=== PATIENT | male | born 1965 | race Caucasian/White ===

== ENCOUNTER 2018-10-07 21:39 | Inpatient (IN) | payer OTHER ==
[~2018-10-07] VITALS: Ht 180.3 cm; Wt 79.5 kg
[2018-10-07] MEDS ORDERED: LEVOTHYROXINE75 MCG ORAL (21:43)
[2018-10-07] MEDS ORDERED: LEXAPRO10 MG ORAL (21:43)
--- NOTE | 2018-10-07 21:44 | NUR ---
ED Nurse Note: RUBEN SMITH RA 27 FROM HOME C/O NAUSEA VOMITTING AND DIZZINESS SINCE 2099. Pt is AO x 4times, VSS, on room air no distress. BILL seen Pt at bedside.
--- NOTE | 2018-10-07 21:46 | Emergency Room Report ---
History of Present Illness General Chief Complaint: Dizziness Source: Patient Present Illness HPI This is a 53-year-old male with a history of [place] disease. He presents with chief complaint of weakness with nausea and vomiting and syncope. He's been sick for the last 2 weeks. He has intermittent vomiting. Unable to keep anything down. No diarrhea. He stood up today and had a syncopal episode. Call 911. No other injury. No chest pain. No abdominal pain. No cough or congestion. EMS gave him Zofran and he felt better. Was not hypotensive. Has been compliant with his hydrocortisone. Allergies: Coded Allergies: CYCLOBENZAPRINE (Verified Allergy, Unknown, 10/07/18) FEXOFENADINE (Verified Allergy, Unknown, 10/07/18) Patient History Past Medical History: see triage record, old chart reviewed Past Surgical History: other Pertinent Family History: none Social History: Denies: smoking Immunizations: other Reviewed Nursing Documentation: PMH: Agreed; PSxH: Agreed Nursing Documentation-PMH Past Medical History Deferred: Patient Unconscious Past Medical History: No History, Except For Review of Systems Eye: Denies: eye pain, blurred vision ENT: Denies: ear pain, nose congestion, throat swelling Respiratory: Denies: cough, shortness of breath Cardiovascular: Reports: syncope; Denies: chest pain, palpitations Gastrointestinal: Reports: nausea, vomiting; Denies: abdominal pain, diarrhea Musculoskeletal: Denies: back pain, joint pain Skin: Denies: rash Neurological: Denies: headache, numbness Endocrine: Denies: increased thirst, increased urine Hematologic/Lymphatic: Denies: easy bruising All Other Systems: negative except mentioned in HPI Physical Exam Vital Signs Date Time Temp Pulse Resp B/P (MAP) Pulse Ox O2 Delivery O2 Flow Rate FiO2 10/07/18 21:36 98.2 102 18 109/84 100 Room Air vitals normal Sp02 EP Interpretation: reviewed, normal General Appearance: no apparent distress, alert, thin, Chronically Ill Head: normocephalic, atraumatic Eyes: bilateral eye PERRL, bilateral eye EOMI ENT: hearing grossly normal, normal pharynx Neck: full range of motion, supple, no meningismus Respiratory: chest non-tender, lungs clear, normal breath sounds Cardiovascular #1: regular rate, rhythm, no murmur Gastrointestinal: normal bowel sounds, non tender, no mass, no organomegaly, no bruit, non-distended Musculoskeletal: back normal, gait/station normal, normal range of motion Neurologic: alert, oriented x3 Psychiatric: mood/affect normal Skin: warm/dry, pallor Medical Decision Making Diagnostic Impression: Primary Impression: Syncope Qualified Codes: R55 - Syncope and collapse Additional Impressions: Dehydration JAISON (acute kidney injury) Hyponatremia Lactic acidosis ER Course Patient presents with a GI secondary to dehydration. Discussing his syncope. Troponin negative. No source of infection. Patient just now urinated. UA pending. No evidence of ACS, PE, dissection or pneumonia to name a few. Initially, he was hypotensive but blood pressure normalized after IV fluid. Lactic acid still elevated blood coming down. Patient will be admitted for further workup. I gave him a dose of Decadron because of his [place] disease. I contacted Dr. Richardson for admission. Lab Results Impression labs with hyponatremia EKG Diagnostic Results Rate: normal Rhythm: NSR ST Segments: no acute changes Rhythm Strip Diag. Results EP Interpretation: yes Rate: 94 Rhythm: NSR, no PVC's, no ectopy Chest X-Ray Diagnostic Results Chest X-Ray Diagnostic Results : Chest X-Ray Ordered: Yes # of Views/Limited/Complete: 1 View Indication: Chest Pain EP Interpretation: Yes Interpretation: no consolidation, no effusion, no pneumothorax, no acute cardiopulmonary disease Impression: No acute disease Electronically Signed by: Satya Thakkar MD Last Vital Signs Date Time Temp Pulse Resp B/P (MAP) Pulse Ox O2 Delivery O2 Flow Rate FiO2 10/07/18 21:36 98.2 102 18 109/84 100 Room Air Status: improved Disposition: ADMITTED INPATIENT Condition: Serious Satya Thakkar MD Oct 07, 2018 21:46
[2018-10-07 21:53] VITALS: BP 89/77
--- NOTE | 2018-10-07 22:00 | NUR ---
ED Nurse Note: Blood sample sent to lab.
[2018-10-07 22:04] LABS: ANION GAP 12 mmol/L (5-15); BLOOD UREA NITROGEN 17 mg/dL (7-18); CALCIUM 9.9 MG/DL (8.5-10.1); CARBON DIOXIDE 25 MMOL/L (21-32); CHLORIDE 85 MMOL/L (98-107); CREATININE 1.7 MG/DL (0.55-1.30); POTASSIUM 3.8 MMOL/L (3.5-5.1); SODIUM 122 MMOL/L (136-145)
[2018-10-07 22:07] LABS: HEMOGLOBIN 15.3 G/DL (14.2-18.0); MEAN CORPUSCULAR VOLUME 79 FL (80-99); PLATELET COUNT 399 K/UL (150-450); RED BLOOD COUNT 5.32 M/UL (4.70-6.10); RED CELL DISTRIBUTION WIDTH 11.4 % (11.6-14.8)
[2018-10-07 22:17] LABS: ALANINE AMINOTRANSFERASE 36 U/L (12-78); ALBUMIN 3.5 G/DL (3.4-5.0); ALBUMIN/GLOBULIN RATIO 0.8 (1.0-2.7); ALKALINE PHOSPHATASE 224 U/L (46-116); ASPARTATE AMINO TRANSFERASE 18 U/L (15-37); BILIRUBIN,TOTAL 0.7 MG/DL (0.2-1.0); CKMB < 0.5 NG/ML (0.0-3.6); CREATINE KINASE 16 U/L (26-308)
[2018-10-07 22:54] VITALS: BP 107/76
--- NOTE | 2018-10-07 23:07 | NUR ---
ED Nurse Note: Repect lactic acid sent to lab.
[2018-10-07] MEDS ORDERED: Dexamethasone 4mg/ml vial IVP ONE (23:45)
[2018-10-07] MEDS ORDERED: Dexamethasone 4mg/ml vial ONE (23:45)
[2018-10-08 00:38] VITALS: BP 117/63
--- NOTE | 2018-10-08 00:46 | NUR ---
ED Nurse Note: Pt admit to Tele Room 221-2. Report and belongings given to KATELYN Taylor. Pt is AO x 4times, VSS, on romm air no distress.
[2018-10-08 00:51] LABS: APPEARANCE,URINE CLEAR; BILIRUBIN, URINE NEGATIVE (NEGATIVE); COLOR,URINE PALE YELLOW; GLUCOSE, URINE (UA) NEGATIVE (NEGATIVE); KETONES,URINE 1+ (NEGATIVE); LEUKOCYTE ESTERASE ,URINE NEGATIVE (NEGATIVE); NITRITE,URINE NEGATIVE (NEGATIVE); PH,URINE 5 (4.5-8.0); PROTEIN,URINE NEGATIVE (NEGATIVE); UROBILINOGEN,URINE NORMAL MG/DL (0.0-1.0)
--- NOTE | 2018-10-08 01:30 | NUR ---
NEW ADMISSION. Pt arrived via hospital bed at 0100. Admitting Dx: dehydration and acute kidney injury. Admitting Dr: Dr. Ramirez. Pt is on room air with no sob or resp distress. Pt was immediately placed in a gown and personnel monitor was attached. Pt denies any nausea/ vomiting or pain. Physical assessment was completed, skin is intact, no areas of concern. Pt does ambulate with slight unsteadiness, he normally uses a cane at home. Belongings were reviewed. Pt was oriented to room. Pt has right AC 20g c/d/i and locked. Med Recon was unable to be completed, pt does not recall home medications. Bed in lowest position, call light within reach. No admitting orders have been entered. Called Dr Ramirez at 0130, pending call back. Will continue to monitor
--- NOTE | 2018-10-08 03:34 | NUR ---
NURSE NOTES: RECVD call from Dr Ramirez with admitting orders. D/C home meds and contact Dr Koehler for IVF
[2018-10-08 04:00] VITALS: BP 124/82
--- NOTE | 2018-10-08 07:25 | NUR ---
NURSE NOTES: Left message for Dr Koehler regarding IVF and diet for new admission, per Dr loyd
--- NOTE | 2018-10-08 07:26 | NUR ---
HAND-OFF: Report given to Abbey ZEPEDA.
--- NOTE | 2018-10-08 07:28 | NUR ---
NURSE NOTES: Received patient from Claudia ZEPEDA in bed sleeping. No s/s of acute distress noted. Bed is in lowest position, brakes engaged for safety, call light is within reach. IV is intact and patent. Will continue with the plan of care.
[2018-10-08 08:00] VITALS: BP 102/52
[2018-10-08 12:00] VITALS: BP 101/60
[2018-10-08] MEDS: Hydrocortisone 100mg Inj IV SCH ×2 (13:21→21:30)
--- NOTE | 2018-10-08 14:37 | NUR ---
CASE MANAGEMENT:INITIAL REVIEW 53 YO M RUBEN FROM HOME CC: DIZZINESS PMHx: UNABLE TO STATE SI:DEHYDRATION. ACUTE KIDNEY INJURY. T 98.2 HR 102 RR 18 B/P 109/84 SATS 100% ON RA NA 122 CL 85 CR 1.7 GLU 240 LACTIC ACID 3.3 ALP 224 IS: NS BOLUS X2 PATIENT ADMITTED TO [facility] 10/07/2018 @ 7989 DCP: PATIENT TO BE DISCHARGED TO HOME ONCE MEDICALLY CLEARED. PLAN OF CARE: NEPHRO CONSULT Addendum: 10/08/18 at 1728 by Delores Colin CM INTERQUAL MET
--- NOTE | 2018-10-08 15:12 | Diagnostic Imaging Report ---
Indication: Chest pain Technique: One view of the chest Comparison: none Findings: Lungs and pleural spaces are clear. Heart size is normal Impression: No acute process
--- NOTE | 2018-10-08 15:16 | Cardiology Report ---
APPROVED REPORT EKG Measurement Heart [id number] Sinus tachycardia Prolonged QT Abnormal ECG
[2018-10-08 16:00] VITALS: BP 107/63
--- NOTE | 2018-10-08 17:45 | Consultation ---
Consult Note Consult Note asked to eval for low Na This is a 53-year-old male with a history of [place] disease. He presents with chief complaint of weakness with nausea and vomiting and syncope. He's been sick for the last 2 weeks. He has intermittent vomiting. Unable to keep anything down. No diarrhea. He stood up today and had a syncopal episode. Call 911. No other injury. No chest pain. No abdominal pain. No cough or congestion. EMS gave him Zofran and he felt better. Was not hypotensive. Has been compliant with his hydrocortisone. Allergies: CYCLOBENZAPRINE (Verified Allergy, Unknown, 10/07/18) FEXOFENADINE (Verified Allergy, Unknown, 10/07/18) patient examined data reviewed Low bp Lethargic Assessment/Plan Renal failure , Cr 1.7 (Acute vs Chronic) Syncope Dehydration Hyponatremia, partly dave's , partly dehydration Lactic acidosis HypoTension Urine + for amphetamines and MJ Plan: Saline Hydrocortison Monitor renal parameters and lytes per orders Jeferson Koehler MD Oct 08, 2018 17:45
--- NOTE | 2018-10-08 17:59 | Cardiac Electrophysiology PN ---
Subjective Subjective [id number] Objective Last 24 Hour Vital Signs Date Time Temp Pulse Resp B/P (MAP) Pulse Ox O2 Delivery O2 Flow Rate FiO2 10/08/18 16:00 93 10/08/18 16:00 97.2 88 20 107/63 (78) 98 10/08/18 12:00 100 10/08/18 12:00 98.1 87 20 101/60 (74) 97 10/08/18 09:00 Room Air 10/08/18 08:00 97.6 88 20 102/52 (69) 98 10/08/18 08:00 85 10/08/18 04:00 98.5 87 20 124/82 (96) 98 10/08/18 04:00 85 10/08/18 01:11 Room Air 10/08/18 00:38 98.1 98 18 117/63 100 Room Air 10/08/18 00:30 97.9 93 18 107/76 100 Room Air 10/07/18 22:54 97.9 93 18 107/76 100 Room Air 10/07/18 21:53 97.7 94 18 89/77 98 Room Air 10/07/18 21:53 94 18 Room Air 10/07/18 21:36 98.2 102 18 109/84 100 Room Air Intake and Output 10/07/18 10/08/18 18:59 06:59 Intake Total 0 ml Balance 0 ml Intake Oral 0 ml # Voids 1 Laboratory Tests Test 10/07/18 21:45 10/07/18 22:22 10/07/18 23:00 10/08/18 00:35 White Blood Count 8.0 K/UL (4.8-10.8) Red Blood Count 5.32 M/UL (4.70-6.10) Hemoglobin 15.3 G/DL (14.2-18.0) Hematocrit 42.0 % (42.0-52.0) Mean Corpuscular Volume 79 FL (80-99) L Mean Corpuscular Hemoglobin 28.7 PG (27.0-31.0) Mean Corpuscular Hemoglobin Concent 36.4 G/DL (32.0-36.0) H Red Cell Distribution Width 11.4 % (11.6-14.8) L Platelet Count 399 K/UL (150-450) Mean Platelet Volume 7.1 FL (6.5-10.1) Neutrophils (%) (Auto) % (45.0-75.0) Lymphocytes (%) (Auto) % (20.0-45.0) Monocytes (%) (Auto) % (1.0-10.0) Eosinophils (%) (Auto) % (0.0-3.0) Basophils (%) (Auto) % (0.0-2.0) Differential Total Cells Counted 100 Neutrophils % (Manual) 83 % (45-75) H Lymphocytes % (Manual) 10 % (20-45) L Monocytes % (Manual) 5 % (1-10) Eosinophils % (Manual) 0 % (0-3) Basophils % (Manual) 1 % (0-2) Band Neutrophils 1 % (0-8) Platelet Estimate Adequate Platelet Morphology Normal Red Blood Cell Morphology Normal Sodium Level 122 MMOL/L (136-145) L Potassium Level 3.8 MMOL/L (3.5-5.1) Chloride Level 85 MMOL/L (98-107) L Carbon Dioxide Level 25 MMOL/L (21-32) Anion Gap 12 mmol/L (5-15) Blood Urea Nitrogen 17 mg/dL (7-18) Creatinine 1.7 MG/DL (0.55-1.30) H Estimat Glomerular Filtration Rate 42.5 mL/min (>60) Glucose Level 240 MG/DL (74-106) H Calcium Level 9.9 MG/DL (8.5-10.1) Total Bilirubin 0.7 MG/DL (0.2-1.0) Aspartate Amino Transf (AST/SGOT) 18 U/L (15-37) Alanine Aminotransferase (ALT/SGPT) 36 U/L (12-78) Alkaline Phosphatase 224 U/L (46-116) H Total Creatine Kinase 16 U/L (26-308) L Creatine Kinase MB < 0.5 NG/ML (0.0-3.6) Creatine Kinase MB Relative Index 3.1 Troponin I 0.000 ng/mL (0.000-0.056) Total Protein 7.7 G/DL (6.4-8.2) Albumin 3.5 G/DL (3.4-5.0) Globulin 4.2 g/dL Albumin/Globulin Ratio 0.8 (1.0-2.7) L Lactic Acid Level 3.30 mmol/L (0.4-2.0) H 3.10 mmol/L (0.4-2.0) H Urine Color Pale yellow Urine Appearance Clear Urine pH 5 (4.5-8.0) Urine Specific [place] 1.010 (1.005-1.035) Urine Protein Negative (NEGATIVE) Urine Glucose (UA) Negative (NEGATIVE) Urine Ketones 1+ (NEGATIVE) H Urine Blood Negative (NEGATIVE) Urine Nitrite Negative (NEGATIVE) Urine Bilirubin Negative (NEGATIVE) Urine Urobilinogen Normal MG/DL (0.0-1.0) Urine Leukocyte Esterase Negative (NEGATIVE) Urine Opiates Screen Negative (NEGATIVE) Urine Barbiturates Screen Negative (NEGATIVE) Phencyclidine (PCP) Screen Negative (NEGATIVE) Urine Amphetamines Screen Positive (NEGATIVE) H Urine Benzodiazepines Screen Negative (NEGATIVE) Urine Cocaine Screen Negative (NEGATIVE) Urine Marijuana (THC) Screen Positive (NEGATIVE) H Jerel Palmer MD Oct 08, 2018 17:59
--- NOTE | 2018-10-08 19:21 | NUR ---
HAND-OFF: Report given to KATELYN Huber . Endorsed plan of care.
--- NOTE | 2018-10-08 19:23 | NUR ---
NURSE NOTES: Received report from Alfred Mata RN. Patient in bed AAO X4 with HOB elevated at semi fowlers. Kept clean, dry, and comfortable in bed with no complaints of acute pain at this time. IV line intact and patent and receiving fluids for suspected dehydration. Continent and is able to use urinal. Placed on continuos cardiac monitoring per protocol. Safety precaution in place; siderails x3 up, call light within reach, bed in lowest position, breaks and alarm on at all times. 02 sat at 96-97% on RA with no S/S of respiratory distress. Will continue plan of care and monitor for any changes noted.
[2018-10-08 20:00] VITALS: BP 97/59
--- NOTE | 2018-10-08 20:01 | Consultation ---
DATE OF CONSULTATION: 10/08/2018 INFECTIOUS DISEASE CONSULTATION CONSULTING PHYSICIAN: Sal Wisdom M.D. PRIMARY ATTENDING PHYSICIAN: Yashira Ramirez M.D. REASON FOR CONSULTATION: Lactic acidosis and syncope. HISTORY OF PRESENT ILLNESS: This is a 53-year-old male admitted last night complaining of weakness, nausea, vomiting, and had a syncopal episode. He lost consciousness for a short period, fell down on his hip. PAST MEDICAL HISTORY: Significant for [place] disease. The patient took 30 mg of hydrocortisone daily. ALLERGIES: To cyclobenzaprine and fexofenadine. MEDICATIONS: Getting hydrocortisone, sodium chloride, Zofran, Tylenol. Got a dose of dexamethasone in the ER. SOCIAL HISTORY: Single. Smoker. Used marijuana. Denies alcohol or drug abuse. REVIEW OF SYSTEMS: Some runny nose. No nausea and no vomiting today. No chest pain. No coughing. No problem passing urine. PHYSICAL EXAMINATION: VITAL SIGNS: Temperature 98.1, pulse 87, blood pressure 101/60. GENERAL APPEARANCE: No acute distress. He has normal weight. HEAD AND NECK: No oral lesion. The patient has no teeth or denture. HEART: Normal rate. LUNGS: Clear. ABDOMEN: Soft, nontender. EXTREMITIES: He has no edema. NEUROLOGIC: He is awake, alert, oriented. LABORATORY AND DIAGNOSTIC DATA: WBC 8, hemoglobin 15.3, hematocrit 42, platelet is 399,000. Sodium 122, potassium 3.8, chloride 85, bicarbonate 25, BUN 17, creatinine 1.7, glucose 214. Lactic acid 3.1. UA was negative for wbc, nitrite, and leukocyte esterase. Troponin was zero. Chest x-ray report is pending. Venous duplex of lower extremity showed no thrombosis bilaterally. IMPRESSION: Lactic acidosis, syncope episode, acute kidney injury, severe hyponatremia, amphetamine abuse, nicotine dependence. RECOMMENDATION: We will follow up chest x-ray because the patient has no fever and leukocytosis. We will observe off antibiotic. At the end of my exam, I thank Dr. Ramirez for involving me in the care of this patient. Sal Wisdom M.D. DR: Estrella JOB#: [id number] CC: GERARDO
--- NOTE | 2018-10-08 22:02 | Consultation ---
DATE OF CONSULTATION: 10/08/2018 CARDIOLOGY CONSULTATION CONSULTING PHYSICIAN: Jerel Palmer M.D. REFERRING PHYSICIAN: Yashira Ramirez M.D. REASON FOR CONSULTATION: Syncope. HISTORY OF PRESENT ILLNESS: The patient is a 53-year-old gentleman with history of [place]'s disease, who presents with weakness, nausea, vomiting, and episode of syncope. The patient said he has been sick for two weeks, but he has had episode of syncope in the past. The patient was unable to keep anything down. He did not have diarrhea. He stood up and had a syncopal episode. He called 911. The paramedics came, they gave him Zofran and felt better as he was still nauseous. The patient was noted to have a creatinine of 1.7, was admitted for hyponatremia. His urine toxicology screen was also positive for amphetamine and marijuana. REVIEW OF SYSTEMS: Negative other than what was mentioned in the history of present illness. PAST MEDICAL HISTORY: As mentioned above. FAMILY HISTORY: Noncontributory. SOCIAL HISTORY: He lives at home. He uses marijuana and amphetamine. PHYSICAL EXAMINATION: VITAL SIGNS: Blood pressure is 107/63, pulse 88, respirations 18, and he is afebrile. HEAD AND NECK: Showed no JVD or carotid bruit. LUNGS: Clear. CARDIOVASCULAR: Shows regular S1 and S2 with no gallop or murmur. ABDOMEN: Soft and nontender. EXTREMITIES: No pitting edema. LABORATORY AND DIAGNOSTIC DATA: His labs show white count 8, hemoglobin 15, hematocrit 42, and platelet count 399. Sodium 122, potassium 3.8, BUN 17, and creatinine 1.8. Lactic acid 3.3 and 3.1. Troponin is negative. ASSESSMENT AND PLAN: 1. Syncopal episodes. This could be due to sepsis, severe hyponatremia, and dehydration. Lactic acid was 3.3, creatinine 1.7, sodium 122. His first troponin is negative. We will repeat cardiac enzymes and get an echocardiogram for further evaluation. 2. Severe hyponatremia, as the patient has history of [place]'s disease. 3. Polysubstance abuse with amphetamine and marijuana. 4. [place] disease. The patient is on Solu-Cortef 50 mg IV every 8 hours. Thank you very much, Dr. Ramirez, for allowing me to participate in the care of this patient. Please do not hesitate to contact me for any questions regarding my evaluation. Jerel Palmer M.D. DR: POOJA JOB#: [id number] CC:
--- NOTE | 2018-10-08 22:46 | Consultation ---
DATE OF CONSULTATION: 10/08/2018 ENDOCRINOLOGY CONSULTATION CONSULTING PHYSICIAN: Yong Montoya M.D. REFERRING PHYSICIAN: Yashira Ramirez M.D. REASON FOR CONSULTATION: Leon's . HISTORY OF PRESENT ILLNESS: The patient is a 53-year-old male with history of [place] disease, presenting with weakness, nausea, vomiting, and syncope. He was sick for the past 2 weeks. He has been intermittently vomiting, unable to keep anything down. No diarrhea and he had a syncopal episode the day of admission, called 911. He has been compliant with the trial of cortisol. PAST MEDICAL HISTORY: [place]. PAST SURGICAL HISTORY: None. ALLERGIES: To Flexeril and fexofenadine. FAMILY HISTORY: Noncontributory. SOCIAL HISTORY: No smoking, alcohol, or drug use. REVIEW OF SYSTEMS: As per HPI. LABORATORY DATA: WBC 8, hemoglobin 15, hematocrit 42, and platelets 399. Sodium 122, potassium 3.6, chloride 85, bicarb 25, BUN 17, and creatinine 1.7. Lactic acid of 3.3. PHYSICAL EXAMINATION: VITAL SIGNS: Blood pressure 117/63, pulse 98, respiratory rate 18, and temperature 98. HEENT: Pupils are equal and reactive to light. Sclerae are anicteric. NECK: No JVD. HEART: Regular. LUNGS: Clear. ABDOMEN: Positive bowel sounds. EXTREMITIES: No clubbing, cyanosis, or edema. DIAGNOSES: 1. Nausea and vomiting. 2. Syncope. 3. [place] crisis. PLAN: The patient was given a dose of Decadron in the emergency room. We will continue with stress dose of Solu-Cortef 50 mg IV q.8 h. for now followed by taper. I will follow the patient during his stay. Thank you, Dr. Ramirez, for the courtesy of this consultation. Yong Montoya M.D. DR: PHILOMENA JOB#: [id number] CC: GERARDO
[2018-10-09] VITALS: BP 108/67
--- NOTE | 2018-10-09 02:40 | NUR ---
NURSE NOTES: Patient in bed asleep with no S/S of acute pain or discomfort at this time. Will continue to monitor
--- NOTE | 2018-10-09 03:16 | History and Physical Report ---
DATE OF ADMISSION: 10/07/2018 HISTORY OF PRESENT ILLNESS: The patient is admitted for dehydration, acute kidney injury. The patient has been complaining of history of syncopal episodes, dizziness, as well as vomiting. It happened a day before admission. All of this could be mostly due to dehydration. Denies shortness of breath. Denies nausea or vomiting. Denies any abdominal pain. Denies orthopnea. Denies headache. PAST MEDICAL HISTORY: Depression, hypothyroidism. PAST SURGICAL HISTORY: None. SOCIAL HISTORY: History of smoking. History of drug abuse. No history of alcohol abuse. ALLERGIES: Cyclobenzaprine, fexofenadine, and Flomax. MEDICATIONS: Levoxyl and Lexapro. FAMILY HISTORY: Noncontributory. REVIEW OF SYSTEMS: HEENT: Denies headaches. PULMONARY: Denies shortness of breath. Denies cough. CARDIOVASCULAR: Denies chest pain or orthopnea. GASTROINTESTINAL: Reported vomiting. Denies constipation. Denies abdominal pain. EXTREMITIES: Denies pain in the lower extremities. CENTRAL NERVOUS SYSTEM: No change in vision or speech pattern. Did have syncopal episode the night before admission, but it lasted very few seconds to a minute. No headache. No change in vision or speech. PHYSICAL EXAMINATION: VITAL SIGNS: Temperature 98.5, pulse is 85, blood pressure 124/82. CHEST: Clear to auscultation. CARDIOVASCULAR: Regular rate and rhythm. CHEST: Clear to auscultation. GASTROINTESTINAL: Soft, nontender, and organomegaly. EXTREMITIES: No edema. Moves all four extremities. Sensory intact to light touch. Reflexes are equal on both sides. Moves all four extremities. LABORATORY DATA: WBC of 8, hemoglobin 15.3, and platelets of 399,000. Sodium 122, potassium 3.8, BUN of 17, creatinine of 1.7, and glucose of 240. The patient's lactic acid was 2.3. ASSESSMENT AND PLAN: Severe hyponatremia, syncopal episode, dehydration, vomiting. The patient's symptoms are most likely due to hyponatremia. I have asked Dr. Koehler, Dr. Palmer, Dr. Ledesma, and Dr. Sal Wisdom and Dr. Saleem see the patient for syncopal workup as well as for treatment of hyponatremia as well as to rule out any infectious etiology, failure to the treatment of hyponatremia and the management of the diabetes. Glucose was 240. Ali Grant Ramirez DR: Job JOB#: [id number] CC:
[2018-10-09 04:00] VITALS: BP 112/71
[2018-10-09] MEDS: Hydrocortisone 100mg Inj IV SCH (06:16)
--- NOTE | 2018-10-09 06:32 | General Progress Note ---
Assessment/Plan Problem List: (1) [place] disease ICD Codes: E27.1 - Primary adrenocortical insufficiency SNOMED: 103721993 (2) Hyponatremia ICD Codes: E87.1 - Hypo-osmolality and hyponatremia SNOMED: 25464212 (3) Lactic acidosis ICD Codes: E87.2 - Acidosis SNOMED: 86689394 (4) Dehydration ICD Codes: E86.0 - Dehydration SNOMED: 22187493 (5) Syncope ICD Codes: R55 - Syncope and collapse SNOMED: 471543082 Qualifiers: Qualified Codes: R55 - Syncope and collapse (6) JAISON (acute kidney injury) ICD Codes: N17.9 - Acute kidney failure, unspecified SNOMED: 92281887 Assessment/Plan reduce SoluCortef to 25 mg IV every 8 hours Subjective Allergies: Coded Allergies: CYCLOBENZAPRINE (Verified Allergy, Unknown, 10/07/18) FEXOFENADINE (Verified Allergy, Unknown, 10/07/18) All Systems: reviewed and negative except above Subjective events noted Objective Last 24 Hour Vital Signs Date Time Temp Pulse Resp B/P (MAP) Pulse Ox O2 Delivery O2 Flow Rate FiO2 10/09/18 00:00 79 10/09/18 00:00 98.1 80 20 108/67 (81) 97 10/08/18 21:00 Room Air 10/08/18 20:00 93 10/08/18 20:00 97.2 89 20 97/59 (72) 96 10/08/18 16:00 93 10/08/18 16:00 97.2 88 20 107/63 (78) 98 10/08/18 12:00 100 10/08/18 12:00 98.1 87 20 101/60 (74) 97 10/08/18 09:00 Room Air 10/08/18 08:00 97.6 88 20 102/52 (69) 98 10/08/18 08:00 85 Intake and Output 10/08/18 10/09/18 19:00 07:00 Intake Total 720 ml Output Total 900 ml 1000 ml Balance -180 ml -1000 ml Intake Oral 720 ml Output Urine Total 900 ml 1000 ml # Voids 1 2 Laboratory Tests 10/08/18 21:10: C-Reactive Protein, Quantitative 1.6H Height (Feet): 5 Height (Inches): 11.00 Weight (Pounds): 175 General Appearance: no apparent distress Neck: normal alignment Cardiovascular: normal rate Respiratory/Chest: normal breath sounds Abdomen: normal bowel sounds Objective Current Medications Medications (Trade) Dose Ordered Sig/Sajan Route PRN Reason Start Time Stop Time Status Last Admin Dose Admin Acetaminophen (Tylenol) 650 mg Q6H PRN ORAL Mild Pain/Temp > 100.5 10/08/18 03:30 11/07/18 03:29 Hydrocortisone (Solu-CORTEF) 50 mg EVERY 8 HOURS IV 10/08/18 14:00 11/07/18 13:59 10/09/18 06:16 Ondansetron HCl (Zofran) 4 mg Q6H PRN IVP Nausea & Vomiting 10/08/18 03:30 11/07/18 03:29 Sodium Chloride 1,000 ml @ 100 mls/hr Q10H IV 10/08/18 11:30 11/07/18 11:29 10/09/18 06:16 Yong Montoya MD Oct 09, 2018 06:31
--- NOTE | 2018-10-09 07:41 | NUR ---
HAND-OFF: Report given to Chandrakant Churchill RN. Patient in bed asleep in stable condition, endorsed plan of care.
[2018-10-09 08:00] VITALS: BP 106/70
--- NOTE | 2018-10-09 08:04 | NUR ---
Receiving note: Patient resting in bed, breathing even and unlabored on room air. A+Ox4. Tele reading SR. denies pain. eating breakfast. reviewed plan of care. Call light in reach.
[2018-10-09 08:16] LABS: BASOPHILS % (AUTO) 0.3 % (0.0-2.0); HEMATOCRIT 34.4 % (42.0-52.0); HEMOGLOBIN 12.2 G/DL (14.2-18.0); LYMPHOCYTES % (AUTO) 17.7 % (20.0-45.0); MEAN CORPUSCULAR VOLUME 81 FL (80-99); MONOCYTES % (AUTO) 7.6 % (1.0-10.0); NEUTROPHILS % (AUTO) 74.3 % (45.0-75.0); PLATELET COUNT 258 K/UL (150-450); RED BLOOD COUNT 4.23 M/UL (4.70-6.10); RED CELL DISTRIBUTION WIDTH 12.7 % (11.6-14.8); WHITE BLOOD COUNT 5.4 K/UL (4.8-10.8)
[2018-10-09 08:54] LABS: ALANINE AMINOTRANSFERASE 34 U/L (12-78); ALBUMIN 2.8 G/DL (3.4-5.0); ALBUMIN/GLOBULIN RATIO 0.8 (1.0-2.7); ALKALINE PHOSPHATASE 164 U/L (46-116); ANION GAP 7 mmol/L (5-15); ASPARTATE AMINO TRANSFERASE 26 U/L (15-37); BILIRUBIN,TOTAL 0.3 MG/DL (0.2-1.0); BLOOD UREA NITROGEN 14 mg/dL (7-18); CALCIUM 8.3 MG/DL (8.5-10.1); CARBON DIOXIDE 27 MMOL/L (21-32); CHLORIDE 99 MMOL/L (98-107); CHOLESTEROL 151 MG/DL (< 200); CREATININE 0.9 MG/DL (0.55-1.30); FERRITIN 251 NG/ML (8-388); GAMMA GLUTAMYL TRANSPEPTIDASE 86 U/L (5-85); HDL CHOLESTEROL 44 MG/DL (40-60); PHOSPHORUS 3.2 MG/DL (2.5-4.9); POTASSIUM 3.5 MMOL/L (3.5-5.1); SODIUM 133 MMOL/L (136-145); TRIGLYCERIDES 72 MG/DL (30-150)
[2018-10-09 09:17] LABS: % IRON SATURATION 64 % (15-50); IRON 133 ug/dL (50-175); TOTAL IRON BINDING CAPACITY 208 ug/dL (250-450)
--- NOTE | 2018-10-09 11:10 | Infectious Diseases Prog Note ---
Assessment/Plan Assessment/Plan IMPRESSION: Lactic acidosis, syncope episode, acute kidney injury, severe hyponatremia improving, amphetamine abuse, nicotine dependence. RECOMMENDATION: We will observe off antibiotic. Subjective ROS Limited/Unobtainable: No Constitutional: Reports: no symptoms Respiratory: Reports: no symptoms Cardiovascular: Reports: no symptoms Gastrointestinal/Abdominal: Reports: no symptoms Genitourinary: Reports: no symptoms Allergies: Coded Allergies: CYCLOBENZAPRINE (Verified Allergy, Unknown, 10/07/18) FEXOFENADINE (Verified Allergy, Unknown, 10/07/18) Objective Vital Signs Last 24 Hour Vital Signs Date Time Temp Pulse Resp B/P (MAP) Pulse Ox O2 Delivery O2 Flow Rate FiO2 10/09/18 09:00 Room Air 10/09/18 08:00 97.2 80 18 106/70 (82) 96 10/09/18 04:00 95 10/09/18 04:00 97.0 83 20 112/71 (85) 97 10/09/18 00:00 79 10/09/18 00:00 98.1 80 20 108/67 (81) 97 10/08/18 21:00 Room Air 10/08/18 20:00 93 10/08/18 20:00 97.2 89 20 97/59 (72) 96 10/08/18 16:00 93 10/08/18 16:00 97.2 88 20 107/63 (78) 98 10/08/18 12:00 100 10/08/18 12:00 98.1 87 20 101/60 (74) 97 Height (Feet): 5 Height (Inches): 11.00 Weight (Pounds): 175 General Appearance: no acute distress HEENT: mucous membranes moist Respiratory/Chest: lungs clear Cardiovascular: normal rate Abdomen: soft, non tender Extremities: no edema Neurologic/Psychiatric: alert, responsive Laboratory Tests Test 10/08/18 21:10 10/09/18 07:45 C-Reactive Protein, Quantitative 1.6 mg/dL (0.00-0.90) H White Blood Count 5.4 K/UL (4.8-10.8) Red Blood Count 4.23 M/UL (4.70-6.10) L Hemoglobin 12.2 G/DL (14.2-18.0) L Hematocrit 34.4 % (42.0-52.0) L Mean Corpuscular Volume 81 FL (80-99) Mean Corpuscular Hemoglobin 28.8 PG (27.0-31.0) Mean Corpuscular Hemoglobin Concent 35.5 G/DL (32.0-36.0) Red Cell Distribution Width 12.7 % (11.6-14.8) Platelet Count 258 K/UL (150-450) Mean Platelet Volume 7.5 FL (6.5-10.1) Neutrophils (%) (Auto) 74.3 % (45.0-75.0) Lymphocytes (%) (Auto) 17.7 % (20.0-45.0) L Monocytes (%) (Auto) 7.6 % (1.0-10.0) Eosinophils (%) (Auto) 0.0 % (0.0-3.0) Basophils (%) (Auto) 0.3 % (0.0-2.0) Sodium Level 133 MMOL/L (136-145) L Potassium Level 3.5 MMOL/L (3.5-5.1) Chloride Level 99 MMOL/L (98-107) Carbon Dioxide Level 27 MMOL/L (21-32) Anion Gap 7 mmol/L (5-15) Blood Urea Nitrogen 14 mg/dL (7-18) Creatinine 0.9 MG/DL (0.55-1.30) Estimat Glomerular Filtration Rate > 60 mL/min (>60) Glucose Level 127 MG/DL (74-106) #H Hemoglobin A1c 5.3 % (4.3-6.0) Uric Acid 2.6 MG/DL (2.6-7.2) Calcium Level 8.3 MG/DL (8.5-10.1) L Phosphorus Level 3.2 MG/DL (2.5-4.9) Magnesium Level 1.5 MG/DL (1.8-2.4) L Iron Level 133 ug/dL (50-175) Total Iron Binding Capacity 208 ug/dL (250-450) L Percent Iron Saturation 64 % (15-50) H Unsaturated Iron Binding 75 ug/dL (112-346) L Ferritin 251 NG/ML (8-388) Total Bilirubin 0.3 MG/DL (0.2-1.0) Gamma Glutamyl Transpeptidase 86 U/L (5-85) H Aspartate Amino Transf (AST/SGOT) 26 U/L (15-37) Alanine Aminotransferase (ALT/SGPT) 34 U/L (12-78) Alkaline Phosphatase 164 U/L (46-116) H Troponin I 0.000 ng/mL (0.000-0.056) Pro-B-Type Natriuretic Peptide 174 pg/mL (0-125) H Total Protein 6.1 G/DL (6.4-8.2) L Albumin 2.8 G/DL (3.4-5.0) L Globulin 3.3 g/dL Albumin/Globulin Ratio 0.8 (1.0-2.7) L Triglycerides Level 72 MG/DL (30-150) Cholesterol Level 151 MG/DL (< 200) LDL Cholesterol 93 mg/dL (<100) HDL Cholesterol 44 MG/DL (40-60) Cholesterol/HDL Ratio 3.4 (3.3-4.4) Vitamin B12 Level 952 PG/ML (193-986) Folate 16.3 NG/ML (8.6-58.9) Thyroid Stimulating Hormone (TSH) 1.515 uiU/mL (0.358-3.740) Current Medications Medications (Trade) Dose Ordered Sig/Sajan Route PRN Reason Start Time Stop Time Status Last Admin Dose Admin Acetaminophen (Tylenol) 650 mg Q6H PRN ORAL Mild Pain/Temp > 100.5 10/08/18 03:30 11/07/18 03:29 Hydrocortisone (Solu-CORTEF) 25 mg EVERY 8 HOURS IV 10/09/18 14:00 11/07/18 13:59 Ondansetron HCl (Zofran) 4 mg Q6H PRN IVP Nausea & Vomiting 10/08/18 03:30 11/07/18 03:29 Sodium Chloride 1,000 ml @ 100 mls/hr Q10H IV 10/08/18 11:30 11/07/18 11:29 10/09/18 06:16 Sal Wisdom MD Oct 09, 2018 11:10
[2018-10-09 12:00] VITALS: BP 126/83
[2018-10-09] MEDS ORDERED: Hydrocortisone 100mg Inj IV SCH (14:00)
--- NOTE | 2018-10-09 14:13 | Diagnostic Imaging Report ---
APPROVED REPORT CPT Code: 49604 Present Symptoms Comments: Swelling BILATERAL: Imaging reveals a patent deep venous system bilaterally. There is no evidence of thrombus within the common femoral, superficial femoral, popliteal or tibial segments. The greater saphenous veins are within normal limits. Doppler indicates normal spontaneous flow within these segments.
--- NOTE | 2018-10-09 14:32 | Nephrology Progress Note ---
Assessment/Plan Problem List: (1) Brooks disease (2) Dehydration (3) Hyponatremia (4) JAISON (acute kidney injury) Assessment Renal failure , Cr 1.7 (Acute vs Chronic) normalized Syncope Dehydration improved Hyponatremia, partly dave's , partly dehydration improved Lactic acidosis HypoTension Urine + for amphetamines and MJ Plan Plan: Saline Hydrocortison, lower dose Monitor renal parameters and lytes per orders Subjective ROS Limited/Unobtainable: No Objective Objective Last 24 Hour Vital Signs Date Time Temp Pulse Resp B/P (MAP) Pulse Ox O2 Delivery O2 Flow Rate FiO2 10/09/18 12:00 97.5 77 20 126/83 (97) 99 10/09/18 09:00 Room Air 10/09/18 08:00 97.2 80 18 106/70 (82) 96 10/09/18 04:00 95 10/09/18 04:00 97.0 83 20 112/71 (85) 97 10/09/18 00:00 79 10/09/18 00:00 98.1 80 20 108/67 (81) 97 10/08/18 21:00 Room Air 10/08/18 20:00 93 10/08/18 20:00 97.2 89 20 97/59 (72) 96 10/08/18 16:00 93 10/08/18 16:00 97.2 88 20 107/63 (78) 98 Intake and Output 10/08/18 10/09/18 19:00 07:00 Intake Total 720 ml 320 ml Output Total 900 ml 1800 ml Balance -180 ml -1480 ml Intake Oral 720 ml 320 ml Output Urine Total 900 ml 1800 ml # Voids 1 4 Laboratory Tests 10/08/18 21:10: C-Reactive Protein, Quantitative 1.6H 10/09/18 07:45: White Blood Count 5.4, Red Blood Count 4.23L, Hemoglobin 12.2L, Hematocrit 34.4L , Mean Corpuscular Volume 81, Mean Corpuscular Hemoglobin 28.8, Mean Corpuscular Hemoglobin Concent 35.5, Red Cell Distribution Width 12.7, Platelet Count 258, Mean Platelet Volume 7.5, Neutrophils (%) (Auto) 74.3, Lymphocytes (% ) (Auto) 17.7L, Monocytes (%) (Auto) 7.6, Eosinophils (%) (Auto) 0.0, Basophils (%) (Auto) 0.3, Sodium Level 133L, Potassium Level 3.5, Chloride Level 99, Carbon Dioxide Level 27, Anion Gap 7, Blood Urea Nitrogen 14, Creatinine 0.9, Estimat Glomerular Filtration Rate > 60, Glucose Level 127#H, Hemoglobin A1c 5.3 , Uric Acid 2.6, Calcium Level 8.3L, Phosphorus Level 3.2, Magnesium Level 1.5L , Iron Level 133, Total Iron Binding Capacity 208L, Percent Iron Saturation 64H , Unsaturated Iron Binding 75L, Ferritin 251, Total Bilirubin 0.3, Gamma Glutamyl Transpeptidase 86H, Aspartate Amino Transf (AST/SGOT) 26, Alanine Aminotransferase (ALT/SGPT) 34, Alkaline Phosphatase 164H, Troponin I 0.000, Pro -B-Type Natriuretic Peptide 174H, Total Protein 6.1L, Albumin 2.8L, Globulin 3.3 , Albumin/Globulin Ratio 0.8L, Triglycerides Level 72, Cholesterol Level 151, LDL Cholesterol 93, HDL Cholesterol 44, Cholesterol/HDL Ratio 3.4, Vitamin B12 Level 952, Folate 16.3, Thyroid Stimulating Hormone (TSH) 1.515 Height (Feet): 5 Height (Inches): 11.00 Weight (Pounds): 175 General Appearance: no apparent distress, other - more responsive Cardiovascular: normal rate Respiratory/Chest: decreased breath sounds Abdomen: soft Objective no change Jeferson Koehler MD Oct 09, 2018 14:32
[2018-10-09 16:00] VITALS: BP 131/85
--- NOTE | 2018-10-09 16:34 | Cardiac Electrophysiology PN ---
Assessment/Plan Assessment/Plan 1. Syncopal episodes. This could be due to sepsis, severe hyponatremia and dehydration. Lactic acid was 3.3, creatinine 1.7, sodium 122. Ruled out for OR. Echo pending. 2. Severe hyponatremia, as the patient has history of [place]'s disease. Na now 133 3. Polysubstance abuse with amphetamine and marijuana. 4. [place] disease. The patient is on Solu-Cortef 50 mg IV every 8 hours. SERGEI RN Subjective Subjective Remained in SR. No CP or SOB Objective Last 24 Hour Vital Signs Date Time Temp Pulse Resp B/P (MAP) Pulse Ox O2 Delivery O2 Flow Rate FiO2 10/09/18 12:00 97.5 77 20 126/83 (97) 99 10/09/18 09:00 Room Air 10/09/18 08:00 97.2 80 18 106/70 (82) 96 10/09/18 04:00 95 10/09/18 04:00 97.0 83 20 112/71 (85) 97 10/09/18 00:00 79 10/09/18 00:00 98.1 80 20 108/67 (81) 97 10/08/18 21:00 Room Air 10/08/18 20:00 93 10/08/18 20:00 97.2 89 20 97/59 (72) 96 Intake and Output 10/08/18 10/09/18 19:00 07:00 Intake Total 720 ml 320 ml Output Total 900 ml 1800 ml Balance -180 ml -1480 ml Intake Oral 720 ml 320 ml Output Urine Total 900 ml 1800 ml # Voids 1 4 Laboratory Tests Test 10/08/18 21:10 10/09/18 07:45 C-Reactive Protein, Quantitative 1.6 mg/dL (0.00-0.90) H White Blood Count 5.4 K/UL (4.8-10.8) Red Blood Count 4.23 M/UL (4.70-6.10) L Hemoglobin 12.2 G/DL (14.2-18.0) L Hematocrit 34.4 % (42.0-52.0) L Mean Corpuscular Volume 81 FL (80-99) Mean Corpuscular Hemoglobin 28.8 PG (27.0-31.0) Mean Corpuscular Hemoglobin Concent 35.5 G/DL (32.0-36.0) Red Cell Distribution Width 12.7 % (11.6-14.8) Platelet Count 258 K/UL (150-450) Mean Platelet Volume 7.5 FL (6.5-10.1) Neutrophils (%) (Auto) 74.3 % (45.0-75.0) Lymphocytes (%) (Auto) 17.7 % (20.0-45.0) L Monocytes (%) (Auto) 7.6 % (1.0-10.0) Eosinophils (%) (Auto) 0.0 % (0.0-3.0) Basophils (%) (Auto) 0.3 % (0.0-2.0) Sodium Level 133 MMOL/L (136-145) L Potassium Level 3.5 MMOL/L (3.5-5.1) Chloride Level 99 MMOL/L (98-107) Carbon Dioxide Level 27 MMOL/L (21-32) Anion Gap 7 mmol/L (5-15) Blood Urea Nitrogen 14 mg/dL (7-18) Creatinine 0.9 MG/DL (0.55-1.30) Estimat Glomerular Filtration Rate > 60 mL/min (>60) Glucose Level 127 MG/DL (74-106) #H Hemoglobin A1c 5.3 % (4.3-6.0) Uric Acid 2.6 MG/DL (2.6-7.2) Calcium Level 8.3 MG/DL (8.5-10.1) L Phosphorus Level 3.2 MG/DL (2.5-4.9) Magnesium Level 1.5 MG/DL (1.8-2.4) L Iron Level 133 ug/dL (50-175) Total Iron Binding Capacity 208 ug/dL (250-450) L Percent Iron Saturation 64 % (15-50) H Unsaturated Iron Binding 75 ug/dL (112-346) L Ferritin 251 NG/ML (8-388) Total Bilirubin 0.3 MG/DL (0.2-1.0) Gamma Glutamyl Transpeptidase 86 U/L (5-85) H Aspartate Amino Transf (AST/SGOT) 26 U/L (15-37) Alanine Aminotransferase (ALT/SGPT) 34 U/L (12-78) Alkaline Phosphatase 164 U/L (46-116) H Troponin I 0.000 ng/mL (0.000-0.056) Pro-B-Type Natriuretic Peptide 174 pg/mL (0-125) H Total Protein 6.1 G/DL (6.4-8.2) L Albumin 2.8 G/DL (3.4-5.0) L Globulin 3.3 g/dL Albumin/Globulin Ratio 0.8 (1.0-2.7) L Triglycerides Level 72 MG/DL (30-150) Cholesterol Level 151 MG/DL (< 200) LDL Cholesterol 93 mg/dL (<100) HDL Cholesterol 44 MG/DL (40-60) Cholesterol/HDL Ratio 3.4 (3.3-4.4) Vitamin B12 Level 952 PG/ML (193-986) Folate 16.3 NG/ML (8.6-58.9) Thyroid Stimulating Hormone (TSH) 1.515 uiU/mL (0.358-3.740) Objective HEAD AND NECK: Showed no JVD or carotid bruit. LUNGS: Clear. CARDIOVASCULAR: Shows regular S1 and S2 with no gallop or murmur. ABDOMEN: Soft and nontender. EXTREMITIES: No pitting edema. Jerel Palmer MD Oct 09, 2018 16:34
--- NOTE | 2018-10-09 16:53 | NUR ---
nurse note: Patient complaining of pain that he says is only relieved by Metocarbomol (Roboxin) not other medication. Informed Dr Richardson and Canelo Lea TRANSPLANT NURSE PRACTITIONER. Per TRANSPLANT NURSE PRACTITIONER will assess patient. Patient saying he wants to be discharged today, informed Dr. Alba, per not stable for D/C today.
--- NOTE | 2018-10-09 18:18 | NUR ---
AMA note: patient going increasingly irritated waiting for medication, MD visit and for having a puree diet. Informed patient that he is being cardiac monitored and pending an echocardiogram to make sure his cardiovascular system is stable. In addition he is receiving essential hydration and frequent blood tests for electrolyte monitoring. Informed patient that a pain radiator specialist will be here to see him shortly. Patient saying "i don't care i just want to get out of here" and pacing in his room. Patient saying that his girl friend is picking him up, unable to confirm. last vital signs stable, patient alert and oriented. Patient signed leaving AMA forms. Tried to give his yellow copy and he crumbled paper and threw it on the ground. Soon after patient left, VIVIAN Lea came to see patient. Informed Dr. Ramirez that patient left AMA.
--- NOTE | 2018-10-10 09:57 | Discharge Summary ---
Discharge Summary Discharge Summary _ DATE OF ADMISSION: 10/07/2018 DATE OF DISCHARGE: 10/09/2018 DISCHARGED BY: Dr. Yashira Richardson CONSULTANTS: Dr. Jerel Montoya BRIEF HOSPITAL COURSE: Patient is a 53-year-old male, with history of Israel's disease. He presented with chief complaint of weakness with associated nausea vomiting and syncope. He had been sick for the past 2 weeks. He had intermittent vomiting. He was unable to keep anything down. He denied any diarrhea. He got up earlier and had a syncopal episode. He called 911. He denied any chest pain. There was no other injury. There was no abdominal pain, no cough or congestion. He was given Zofran by EMS and he felt better. He had been compliant with his hydrocortisone. On evaluation at ED, vital signs were stable. Blood work did not show any psychosis, hemoglobin and hematocrit were stable. Sodium was 122, chloride 85. BUN was 17, creatinine 1.7. Troponin was negative. Lactic acid was elevated to 3. Urinalysis was essentially negative. Urine toxicology screen was positive for marijuana and amphetamines. EKG was in normal sinus rhythm. Chest x-ray done did not show any acute process. Blood pressure was initially low. He was given IV hydration. 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 He was admitted for evaluation of hyponatremia, syncope, dehydration, and acute kidney injury and lactic acidosis. He was given IV hydration. Check enzymes were monitored. He was given stress dose of Solu-Cortef 50 mg IV every 8 hrs. Venous duplex of lower extremity was negative for acute DVT. Full treatment was not carried out as patient left against medical advise. 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 I have been assigned to complete a discharge summary on this account, I was not involved with the patient's management. Carmella Ocampo NP Oct 10, 2018 09:57
== END 2018-10-09 17:39 | disposition left against medical advice (07) | DRG 720 ==
LOC: EDBD 21:39 → EMR 22:00 → 4E 23:05 → 2E 23:05 → UNDOADMIN 23:05 → EDBEDREQ 23:20 → 2E 10-09 15:55
DX: A41.9 Sepsis, unspecified organism (principal); N17.9 Acute kidney failure, unspecified; E27.2 Addisonian crisis; E87.1 Hypo-osmolality and hyponatremia; R55 Syncope and collapse; E86.0 Dehydration; F19.10 Other psychoactive substance abuse, uncomplicated; N18.9 Chronic kidney disease, unspecified; F17.200 Nicotine dependence, unspecified, uncomplicated; Z88.8 Allergy status to other drugs, medicaments and biological substances; E03.9 Hypothyroidism, unspecified
CPT/HCPCS: 36415; 71045; 80053; 80061; 80307; 81003; 82550; 82553; 82607; 82728; 82746; 82977; 83036; 83540; 83550; 83605; 83735; 83880; 84100; 84443; 84484; 84550; 85007; 85025; 86140; 93005; 93970; 96361; 96374; 99285

== ENCOUNTER 2019-04-19 18:38 | Inpatient (IN) | payer OTHER ==
[~2019-04-19] VITALS: Ht 180.3 cm; Wt 65.9 kg
[~2019-04-19 18:38] MED LIST: LEVOTHYROXINE75 MCG ORAL; LEXAPRO10 MG ORAL
[2019-04-19] MEDS ORDERED: Morphine Sulfate 4mg/ml Inj (IV USE ONLY) IVP ONE (19:00)
[2019-04-19] MEDS ORDERED: Hydrocortisone 100mg Inj IV ONE (19:00)
--- NOTE | 2019-04-19 19:13 | Emergency Room Report ---
History of Present Illness General Chief Complaint: Pain Source: Patient Present Illness HPI 53-year-old male history of [place]'s duties presents with 4 days without his hydrocortisone he takes 20 mg during the day, 10 mg at night, patient states he has been weak he denies any chest pain or shortness of breath he feels generalized weakness no aggravating or alleviating factors, severity is moderate , constant, patient denies any fevers chills cough congestion. He endorses a generalized body ache. Allergies: Coded Allergies: CYCLOBENZAPRINE (Verified Allergy, Unknown, 10/07/18) FEXOFENADINE (Verified Allergy, Unknown, 10/07/18) TAMSULOSIN (Verified Allergy, Unknown, 04/19/19) Patient History Past Medical History: see triage record Reviewed Nursing Documentation: PMH: Agreed; PSxH: Agreed Nursing Documentation-PMH Past Medical History: No History, Except For Hx COPD: Yes Hx Dizziness: Yes Hx Syncope: Yes Review of Systems All Other Systems: negative except mentioned in HPI Physical Exam Vital Signs Date Time Temp Pulse Resp B/P (MAP) Pulse Ox O2 Delivery O2 Flow Rate FiO2 04/19/19 18:39 98.6 125 20 100/65 (77) 98 Room Air Sp02 EP Interpretation: reviewed, normal General Appearance: no apparent distress, alert, cachetic Head: normocephalic, atraumatic Eyes: bilateral eye PERRL, bilateral eye EOMI ENT: uvula midline, dry mucus membranes Neck: supple, thyroid normal, supple/symm/no masses Respiratory: lungs clear, no respiratory distress, no retraction, no accessory muscle use Cardiovascular #1: normal peripheral pulses, no edema, no gallop, no murmur, tachycardia Gastrointestinal: non tender, soft, no guarding, no rebound Musculoskeletal: normal inspection Neurologic: alert, oriented x3 Psychiatric: mood/affect normal Skin: no rash, warm/dry Medical Decision Making Diagnostic Impression: Primary Impression: [place] disease Additional Impressions: Hyponatremia Dehydration Adrenal insufficiency ER Course 53-year-old male presents with dehydration, generalized weakness x4 days, patient has been without his hydrocortisone 20 mg in the morning, 10 mg at night , Patient given fluid bolus, patient given 100 mg of hydrocortisone here Patient found to have an elevated BUN to creatinine ratio, patient is hyponatremic, hypokalemic which may be secondary to him not taking his hydrocortisone Will admit patient to telemetry Patient admitted to Dr. Ramirez Laboratory Tests Test 04/19/19 18:55 04/19/19 20:27 White Blood Count 5.9 K/UL (4.8-10.8) Red Blood Count 4.79 M/UL (4.70-6.10) Hemoglobin 14.0 G/DL (14.2-18.0) L Hematocrit 40.0 % (42.0-52.0) L Mean Corpuscular Volume 83 FL (80-99) Mean Corpuscular Hemoglobin 29.2 PG (27.0-31.0) Mean Corpuscular Hemoglobin Concent 35.1 G/DL (32.0-36.0) Red Cell Distribution Width 11.7 % (11.6-14.8) Platelet Count 333 K/UL (150-450) Mean Platelet Volume 7.1 FL (6.5-10.1) Neutrophils (%) (Auto) 63.7 % (45.0-75.0) Lymphocytes (%) (Auto) 17.1 % (20.0-45.0) L Monocytes (%) (Auto) 14.8 % (1.0-10.0) H Eosinophils (%) (Auto) 3.0 % (0.0-3.0) Basophils (%) (Auto) 1.4 % (0.0-2.0) Prothrombin Time 11.1 SEC (9.30-11.50) Prothrombin Time INR 1.0 (0.9-1.1) PTT 42 SEC (23-33) H Sodium Level 127 MMOL/L (136-145) L Potassium Level 3.7 MMOL/L (3.5-5.1) Chloride Level 90 MMOL/L (98-107) L Carbon Dioxide Level 22 MMOL/L (21-32) Anion Gap 15 mmol/L (5-15) Blood Urea Nitrogen 28 mg/dL (7-18) H Creatinine 1.3 MG/DL (0.55-1.30) Estimate Glomerular Filtration Rate 58.0 mL/min (>60) Glucose Level 136 MG/DL (74-106) H Lactic Acid Level 1.10 mmol/L (0.4-2.0) Calcium Level 9.7 MG/DL (8.5-10.1) Phosphorus Level 3.5 MG/DL (2.5-4.9) Magnesium Level 1.6 MG/DL (1.8-2.4) L Total Bilirubin 1.6 MG/DL (0.2-1.0) H Direct Bilirubin 0.6 MG/DL (0.0-0.3) H Aspartate Amino Transferase (AST) 20 U/L (15-37) Alanine Aminotransferase (ALT) 13 U/L (12-78) Alkaline Phosphatase 256 U/L (46-116) H Total Creatine Kinase 25 U/L (26-308) L Creatine Kinase MB < 0.5 NG/ML (0.0-3.6) Creatine Kinase MB Relative Index 2.0 Troponin I 0.000 ng/mL (0.000-0.056) Pro-B-Type Natriuretic Peptide 32 pg/mL (0-125) Total Protein 8.7 G/DL (6.4-8.2) H Albumin 3.2 G/DL (3.4-5.0) L Globulin 5.5 g/dL Albumin/Globulin Ratio 0.6 (1.0-2.7) L Lipase 121 U/L (73-393) Urine Color Yellow Urine Appearance Clear Urine pH 5 (4.5-8.0) Urine Specific [place] 1.020 (1.005-1.035) Urine Protein 1+ (NEGATIVE) H Urine Glucose (UA) Negative (NEGATIVE) Urine Ketones 4+ (NEGATIVE) H Urine Blood 4+ (NEGATIVE) H Urine Nitrite Negative (NEGATIVE) Urine Bilirubin Negative (NEGATIVE) Urine Urobilinogen 1 MG/DL (0.0-1.0) H Urine Leukocyte Esterase Negative (NEGATIVE) Urine RBC Pending Urine WBC Pending Urine Squamous Epithelial Cells Pending Urine Bacteria Pending Urine Opiates Screen Negative (NEGATIVE) Urine Barbiturates Screen Negative (NEGATIVE) Phencyclidine (PCP) Screen Negative (NEGATIVE) Urine Amphetamines Screen Positive (NEGATIVE) H Urine Benzodiazepines Screen Negative (NEGATIVE) Urine Cocaine Screen Negative (NEGATIVE) Urine Marijuana (THC) Screen Positive (NEGATIVE) H EKG Diagnostic Results EKG Time: 18:53 EP Interpretation: Sinus tachycardia, rate 115, no acute ST elevations, normal axis Rhythm Strip Diag. Results Rhythm Strip Time: 19:12 EP Interpretation: yes Rate: 111 Rhythm: no PVC's, no ectopy, other - Sinus tachycardia Chest X-Ray Diagnostic Results Chest X-Ray Diagnostic Results : Chest X-Ray Ordered: Yes # of Views/Limited/Complete: 1 View Indication: Other - weakness Interpretation: no consolidation, no effusion, no pneumothorax, no acute cardiopulmonary disease Impression: No acute disease Electronically Signed by: Bk Argueta MD Last Vital Signs Date Time Temp Pulse Resp B/P (MAP) Pulse Ox O2 Delivery O2 Flow Rate FiO2 04/19/19 18:39 98.6 125 20 100/65 (77) 98 Room Air Disposition: ADMITTED INPATIENT Condition: Stable Bk Argueta MD Apr 19, 2019 19:13
[2019-04-19 19:20] VITALS: BP 112/87
[2019-04-19 19:35] LABS: BASOPHILS % (AUTO) 1.4 % (0.0-2.0); LYMPHOCYTES % (AUTO) 17.1 % (20.0-45.0); MEAN CORPUSCULAR VOLUME 83 FL (80-99); MONOCYTES % (AUTO) 14.8 % (1.0-10.0); NEUTROPHILS % (AUTO) 63.7 % (45.0-75.0); PLATELET COUNT 333 K/UL (150-450); RED BLOOD COUNT 4.79 M/UL (4.70-6.10); RED CELL DISTRIBUTION WIDTH 11.7 % (11.6-14.8); WHITE BLOOD COUNT 5.9 K/UL (4.8-10.8)
[2019-04-19 19:44] LABS: ANION GAP 15 mmol/L (5-15); BLOOD UREA NITROGEN 28 mg/dL (7-18); CALCIUM 9.7 MG/DL (8.5-10.1); CARBON DIOXIDE 22 MMOL/L (21-32); CHLORIDE 90 MMOL/L (98-107); CREATININE 1.3 MG/DL (0.55-1.30); POTASSIUM 3.7 MMOL/L (3.5-5.1); SODIUM 127 MMOL/L (136-145)
[2019-04-19] MEDS ORDERED: HYDROCORTISONE10 MG PO (19:50)
[2019-04-19 19:55] LABS: ALANINE AMINOTRANSFERASE 13 U/L (12-78); ALBUMIN 3.2 G/DL (3.4-5.0); ALBUMIN/GLOBULIN RATIO 0.6 (1.0-2.7); ALKALINE PHOSPHATASE 256 U/L (46-116); ASPARTATE AMINO TRANSFERASE 20 U/L (15-37); BILIRUBIN,TOTAL 1.6 MG/DL (0.2-1.0); CKMB < 0.5 NG/ML (0.0-3.6); CREATINE KINASE 25 U/L (26-308); PHOSPHORUS 3.5 MG/DL (2.5-4.9)
[2019-04-19 20:02] LABS: BILIRUBIN,DIRECT 0.6 MG/DL (0.0-0.3)
[2019-04-19 20:42] LABS: APPEARANCE,URINE CLEAR; BILIRUBIN, URINE NEGATIVE (NEGATIVE); GLUCOSE, URINE (UA) NEGATIVE (NEGATIVE); KETONES,URINE 4+ (NEGATIVE); LEUKOCYTE ESTERASE ,URINE NEGATIVE (NEGATIVE); NITRITE,URINE NEGATIVE (NEGATIVE); PH,URINE 5 (4.5-8.0); PROTEIN,URINE 1+ (NEGATIVE); UROBILINOGEN,URINE 1 MG/DL (0.0-1.0)
[2019-04-19 20:46] LABS: COLOR,URINE YELLOW
[2019-04-19 20:55] VITALS: BP 115/88
[2019-04-19 21:16] VITALS: BP 116/89
[2019-04-19] MEDS ORDERED: Acetaminophen 500mg (ES) tab ORAL PRN (23:00)
[2019-04-20] VITALS: BP 105/74
[2019-04-20 04:00] VITALS: BP 93/69
[2019-04-20] MEDS: Hydrocortisone 100mg Inj IV SCH ×3 (07:15→22:04)
[2019-04-20 07:38] LABS: BASOPHILS % (AUTO) 0.2 % (0.0-2.0); EOSINOPHILS % (AUTO) 0.2 % (0.0-3.0); HEMOGLOBIN 13.3 G/DL (14.2-18.0); LYMPHOCYTES % (AUTO) 10.2 % (20.0-45.0); MEAN CORPUSCULAR VOLUME 82 FL (80-99); NEUTROPHILS % (AUTO) 83.4 % (45.0-75.0); PLATELET COUNT 322 K/UL (150-450); RED BLOOD COUNT 4.65 M/UL (4.70-6.10); RED CELL DISTRIBUTION WIDTH 12.3 % (11.6-14.8); WHITE BLOOD COUNT 3.9 K/UL (4.8-10.8)
[2019-04-20 08:00] VITALS: BP 98/69
[2019-04-20 09:01] LABS: ALANINE AMINOTRANSFERASE 14 U/L (12-78); ALBUMIN/GLOBULIN RATIO 0.6 (1.0-2.7); ALKALINE PHOSPHATASE 218 U/L (46-116); ANION GAP 13 mmol/L (5-15); ASPARTATE AMINO TRANSFERASE 17 U/L (15-37); BILIRUBIN,TOTAL 1.1 MG/DL (0.2-1.0); BLOOD UREA NITROGEN 22 mg/dL (7-18); CARBON DIOXIDE 21 MMOL/L (21-32); CHLORIDE 96 MMOL/L (98-107); CHOLESTEROL 184 MG/DL (< 200); CREATININE 1.1 MG/DL (0.55-1.30); HDL CHOLESTEROL 21 MG/DL (40-60); PHOSPHORUS 4.1 MG/DL (2.5-4.9); POTASSIUM 4.5 MMOL/L (3.5-5.1); SODIUM 130 MMOL/L (136-145); TRIGLYCERIDES 104 MG/DL (30-150)
[2019-04-20 09:24] LABS: BILIRUBIN,DIRECT 0.4 MG/DL (0.0-0.3)
[2019-04-20 09:55] LABS: CALCIUM 9.3 MG/DL (8.5-10.1)
--- NOTE | 2019-04-20 10:58 | Diagnostic Imaging Report ---
Indication: Dyspnea Comparison: 10/07/2018 A single view chest radiograph was obtained. Findings: Cardiomediastinal appearance is within normal limits for age. The lungs are clear. Pulmonary vascularity is appropriate. The diaphragmatic contour is smooth and costophrenic angles are sharp. No pleural effusions are identified. The bones are unremarkable. Impression: No acute findings
[2019-04-20 12:00] VITALS: BP 100/69
--- NOTE | 2019-04-20 13:11 | Consultation ---
Consult Note Consult Note asked to eval for low Na [place] known to me [place] [facility] [place]- states to be in hospital for running out of meds ! ER: 53-year-old male history of [place]'s duties presents with 4 days without his hydrocortisone he takes 20 mg during the day, 10 mg at night, patient states he has been weak he denies any chest pain or shortness of breath he feels generalized weakness no aggravating or alleviating factors, severity is moderate , constant, patient denies any fevers chills cough congestion. He endorses a generalized body ache. Allergies: CYCLOBENZAPRINE (Verified Allergy, Unknown, 10/07/18) FEXOFENADINE (Verified Allergy, Unknown, 10/07/18) TAMSULOSIN (Verified Allergy, Unknown, 04/19/19) Past Medical History: No History, Except For Hx COPD: Yes Hx Dizziness: Yes Hx Syncope: Yes interviewed examined data reviewed Assessment/Plan Renal failure , mainly dehydration Dehydration Hyponatremia, partly dave's , partly dehydration HypoTension Urine + for amphetamines and MJ Plan: Saline 3 % Hydrocortisone Monitor renal parameters and lytes per orders Jeferson Koehler MD Apr 20, 2019 13:11
[2019-04-20] MEDS ORDERED: NaCl 3% 500ml 500 ML IV ONE (14:00)
--- NOTE | 2019-04-20 15:45 | Consultation ---
DATE OF CONSULTATION: 04/20/2019 ENDOCRINOLOGY CONSULTATION CONSULTING PHYSICIAN: Yong Montoya M.D. REFERRING PHYSICIAN: Yashira Ramirez M.D. REASON FOR CONSULTATION: Adrenal insufficiency. HISTORY OF PRESENT ILLNESS: The patient is a 53-year-old male with history of [place]'s disease on hydrocortisone 20 mg in the morning and 10 mg at night. He has not been taking this medications. He presented to the hospital with generalized body ache and weakness. Denies any fever or chills. He was noted to be hyponatremic with a sodium of 127. Endocrinology was consulted. PAST MEDICAL HISTORY: 1. [place]. 2. Hypothyroidism. MEDICATIONS: Reviewed and reconciled. ALLERGIES: 1. Cyclobenzaprine. 2. Fexofenadine. 3. Flomax. REVIEW OF SYSTEMS: As per HPI. FAMILY HISTORY: Noncontributory. SOCIAL HISTORY: Denies any smoking, alcohol, or drug use. LABORATORY VALUES: WBC 5.9, hemoglobin 14, hematocrit 40, platelets of 333. Sodium 127, potassium 3.1, chloride 90, bicarb 22, BUN 28, creatinine 1.1, glucose 136. Lactic acid 1.0. Lipase 121. Thyroid function pending. PHYSICAL EXAMINATION: VITAL SIGNS: Blood pressure is 93/69, pulse of 94, temperature of 97.3, respiratory rate of 19. HEENT: Pupils are equal and reactive to light. Sclerae are anicteric. NECK: No JVD. HEART: Regular. LUNGS: Clear. ABDOMEN: Positive bowel sounds. EXTREMITIES: No clubbing, cyanosis, or edema. DIAGNOSES: 1. Adrenal insufficiency, [place]'s. 2. Hyponatremia, most likely due to noncompliance with hydrocortisone. PLAN: The patient was given hydrocortisone IV 100 mg in the emergency room and continue with hydrocortisone 25 mg IV every 8 hours. Hopefully by tomorrow we will able to convert to hydrocortisone tablets. Electrolytes will be followed and repleted accordingly. The patient is on levothyroxine 75 mcg, I will currently resume. The thyroid function has been ordered by Dr. Ramirez. We will follow the results. Thank you, Dr. Ramirez, for the courtesy of this consultation. Yong Montoya M.D. DR: JOJO JOB#: [id number] CC: GERARDO
[2019-04-20 16:00] VITALS: BP 115/76
--- NOTE | 2019-04-20 18:35 | Cardiology Report ---
APPROVED REPORT EKG Measurement Heart [id number] Sinus tachycardia T wave abnormality, consider lateral ischemia Prolonged QT interval Abnormal ECG
[2019-04-20 20:00] VITALS: BP 114/80
[2019-04-21] VITALS (7 sets, daily range): BP systolic 105–116; BP diastolic 67–81
--- NOTE | 2019-04-21 03:45 | History and Physical Report ---
DATE OF ADMISSION: 04/19/2019 HISTORY OF PRESENT ILLNESS: The patient was admitted for hyponatremia, history of [place]'s adrenal insufficiency, presented with generalized weakness, ran out of his hydrocortisone for the past 7 days according to the patient, feels still weak, lightheadedness, dizziness and pain all over, and constipation. Denies syncope. Denies chest pain. Denies shortness of breath. Denies cough. Denies chills. PAST MEDICAL HISTORY: Significant for adrenal insufficiency, depression, hypothyroidism, and constipation. PAST SURGICAL HISTORY: None. MEDICATIONS: Lexapro, hydrocortisone, and Levoxyl. ALLERGIES: Cyclobenzaprine, fexofenadine, and Flomax. SOCIAL HISTORY: History of smoking. History of marijuana. Denies history of alcohol abuse. FAMILY HISTORY: Noncontributory. REVIEW OF SYSTEMS: CONSTITUTIONAL: Denies headaches. RESPIRATORY: Denies shortness of breath. Denies cough. CARDIOVASCULAR: Denies chest pain or orthopnea. GASTROINTESTINAL: Denies nausea, vomiting, diarrhea. EXTREMITIES: Reports generalized weakness, dizziness, lightheadedness. No syncope. He has some constipation. PHYSICAL EXAMINATION: VITAL SIGNS: Temperature is 97.3, pulse is 94, blood pressure 90/69. HEENT: PERRLA. NECK: Supple. No lymphadenopathy. CHEST: Clear to auscultation. CARDIOVASCULAR: Regular rate and rhythm. No murmurs or extra sounds. GASTROINTESTINAL: Soft, nontender, nondistended. No organomegaly. EXTREMITIES: No edema. Moves all 4 extremities. NEUROLOGIC: Sensory intact to light touch. Reflexes are equal on both sides. He has generalized weakness. LABORATORY AND DIAGNOSTIC DATA: WBC of 5.9, hemoglobin 14, and platelets 333,000. Sodium 127, potassium 3.7, BUN of 28, creatinine 1.3, and glucose of 136. ASSESSMENT/PLAN: 1. Adrenal insufficiency. 2. Hyponatremia. I have asked Dr. Koehler, Dr. Montoya to see the patient for the treatment of the above-mentioned conditions and help with the management of the treatment. Yashira Ramirez M.D. DR: Whitney JOB#: [id number] CC:
[2019-04-21] MEDS: Hydrocortisone 100mg Inj IV SCH (06:32)
--- NOTE | 2019-04-21 06:54 | General Progress Note ---
Assessment/Plan Problem List: (1) Hypothyroid ICD Codes: E03.9 - Hypothyroidism, unspecified SNOMED: 88808689 (2) [place] disease ICD Codes: E27.1 - Primary adrenocortical insufficiency SNOMED: 603298682 (3) Hyponatremia ICD Codes: E87.1 - Hypo-osmolality and hyponatremia SNOMED: 44337378 (4) Adrenal insufficiency ICD Codes: E27.40 - Unspecified adrenocortical insufficiency SNOMED: 014616000 Assessment/Plan: DC Solu-Cortef start Cortef 20 mg am /10 mg pm start Florinef 0.1 mg daily follow am labs - pending Subjective Allergies: Coded Allergies: CYCLOBENZAPRINE (Verified Allergy, Unknown, 10/07/18) FEXOFENADINE (Verified Allergy, Unknown, 10/07/18) TAMSULOSIN (Verified Allergy, Unknown, 04/19/19) All Systems: reviewed and negative except above Subjective events noted Objective Last 24 Hour Vital Signs Date Time Temp Pulse Resp B/P (MAP) Pulse Ox O2 Delivery O2 Flow Rate FiO2 04/21/19 04:00 94 04/21/19 04:00 97.2 92 20 116/81 (93) 98 04/21/19 00:00 97.3 111 20 105/70 (82) 98 04/21/19 00:00 107 04/20/19 21:00 Room Air 04/20/19 20:00 106 04/20/19 20:00 98.2 103 18 114/80 (91) 98 04/20/19 16:00 99 04/20/19 16:00 98.5 103 23 115/76 (89) 98 04/20/19 12:00 93 04/20/19 12:00 97.3 92 20 100/69 (79) 96 04/20/19 09:00 Room Air 04/20/19 08:00 97.5 72 21 98/69 (79) 97 04/20/19 08:00 99 Intake and Output 04/20/19 04/21/19 19:00 07:00 Intake Total 808 ml Output Total 4 ml Balance -4 ml 808 ml IV Total 808 ml Output Urine Total 4 ml Laboratory Tests 04/21/19 05:34: White Blood Count [Pending], Red Blood Count [Pending], Hemoglobin [Pending], Hematocrit [Pending], Mean Corpuscular Volume [Pending], Mean Corpuscular Hemoglobin [Pending], Mean Corpuscular Hemoglobin Concent [Pending], Red Cell Distribution Width [Pending], Platelet Count [Pending], Mean Platelet Volume [ Pending], Neutrophils (%) (Auto) [Pending], Lymphocytes (%) (Auto) [Pending], Monocytes (%) (Auto) [Pending], Eosinophils (%) (Auto) [Pending], Basophils (%) (Auto) [Pending], Sodium Level [Pending], Potassium Level [Pending], Chloride Level [Pending], Carbon Dioxide Level [Pending], Blood Urea Nitrogen [Pending], Creatinine [Pending], Estimat Glomerular Filtration Rate [Pending], Glucose Level [Pending], Uric Acid [Pending], Calcium Level [Pending], Phosphorus Level [Pending], Magnesium Level [Pending], Total Bilirubin [Pending], Aspartate Amino Transf (AST/SGOT) [Pending], Alanine Aminotransferase (ALT/SGPT) [Pending] , Alkaline Phosphatase [Pending], C-Reactive Protein, Quantitative [Pending], Total Protein [Pending], Albumin [Pending], Globulin [Pending] Height (Feet): 5 Height (Inches): 11.00 Weight (Pounds): 146 General Appearance: no apparent distress Neck: normal alignment Cardiovascular: normal rate Respiratory/Chest: lungs clear Abdomen: normal bowel sounds Pelvis: normal external exam Objective Current Medications Medications (Trade) Dose Ordered Sig/Sajan Route PRN Reason Start Time Stop Time Status Last Admin Dose Admin Acetaminophen (Tylenol) 500 mg Q4H PRN ORAL Mild Pain/Temp > 100.5 04/19/19 23:00 05/19/19 22:59 Escitalopram Oxalate (Lexapro) 10 mg DAILY ORAL 04/20/19 09:00 05/20/19 08:59 04/20/19 08:45 Hydrocortisone (Solu-CORTEF) 25 mg EVERY 8 HOURS IV 04/20/19 06:45 05/20/19 06:44 04/21/19 06:32 Levothyroxine Sodium (Synthroid) 75 mcg DAILY@0630 ORAL 04/20/19 06:30 05/20/19 06:29 04/21/19 06:32 Yong Montoya MD Apr 21, 2019 06:54
[2019-04-21 07:21] LABS: BASOPHILS % (AUTO) 0.3 % (0.0-2.0); EOSINOPHILS % (AUTO) 0.1 % (0.0-3.0); HEMATOCRIT 31.8 % (42.0-52.0); HEMOGLOBIN 11.2 G/DL (14.2-18.0); MEAN CORPUSCULAR VOLUME 83 FL (80-99); MONOCYTES % (AUTO) 9.9 % (1.0-10.0); NEUTROPHILS % (AUTO) 76.7 % (45.0-75.0); PLATELET COUNT 262 K/UL (150-450); RED BLOOD COUNT 3.82 M/UL (4.70-6.10); RED CELL DISTRIBUTION WIDTH 11.2 % (11.6-14.8); WHITE BLOOD COUNT 5.1 K/UL (4.8-10.8)
[2019-04-21 07:32] LABS: ALANINE AMINOTRANSFERASE 13 U/L (12-78); ALBUMIN 2.9 G/DL (3.4-5.0); ALBUMIN/GLOBULIN RATIO 0.6 (1.0-2.7); ALKALINE PHOSPHATASE 193 U/L (46-116); ANION GAP 10 mmol/L (5-15); ASPARTATE AMINO TRANSFERASE 20 U/L (15-37); BILIRUBIN,TOTAL 0.6 MG/DL (0.2-1.0); BLOOD UREA NITROGEN 17 mg/dL (7-18); CARBON DIOXIDE 25 MMOL/L (21-32); CHLORIDE 102 MMOL/L (98-107); CREATININE 0.9 MG/DL (0.55-1.30); PHOSPHORUS 1.6 MG/DL (2.5-4.9); POTASSIUM 4.3 MMOL/L (3.5-5.1); SODIUM 136 MMOL/L (136-145)
--- NOTE | 2019-04-21 08:38 | Consultation ---
History of Present Illness General Chief Complaint: Pain Present Illness Allergies: Coded Allergies: CYCLOBENZAPRINE (Verified Allergy, Unknown, 10/07/18) FEXOFENADINE (Verified Allergy, Unknown, 10/07/18) TAMSULOSIN (Verified Allergy, Unknown, 04/19/19) Medication History Scheduled Escitalopram Oxalate* (Lexapro*), Unknown Dose ORAL DAILY, (Reported) Hydrocortisone (Hydrocortisone), 10 MG PO DAILY, (Reported) Levothyroxine Sodium* (Levothyroxine Sodium*), Unknown Dose ORAL DAILY, ( Reported) Patient History Healthcare decision maker Resuscitation status Full Code Advanced Directive on File Physical Exam Last 24 Hour Vital Signs Date Time Temp Pulse Resp B/P (MAP) Pulse Ox O2 Delivery O2 Flow Rate FiO2 04/21/19 08:00 98.1 98 20 107/73 (84) 98 04/21/19 04:00 94 04/21/19 04:00 97.2 92 20 116/81 (93) 98 04/21/19 00:00 97.3 111 20 105/70 (82) 98 04/21/19 00:00 107 04/20/19 21:00 Room Air 04/20/19 20:00 106 04/20/19 20:00 98.2 103 18 114/80 (91) 98 04/20/19 16:00 99 04/20/19 16:00 98.5 103 23 115/76 (89) 98 04/20/19 12:00 93 04/20/19 12:00 97.3 92 20 100/69 (79) 96 04/20/19 09:00 Room Air Intake and Output 04/20/19 04/21/19 19:00 07:00 Intake Total 1158 ml Output Total 4 ml Balance -4 ml 1158 ml Intake Oral 350 ml IV Total 808 ml Output Urine Total 4 ml # Voids 4 Laboratory Tests Test 04/21/19 05:34 White Blood Count 5.1 K/UL (4.8-10.8) Red Blood Count 3.82 M/UL (4.70-6.10) L Hemoglobin 11.2 G/DL (14.2-18.0) L Hematocrit 31.8 % (42.0-52.0) L Mean Corpuscular Volume 83 FL (80-99) Mean Corpuscular Hemoglobin 29.4 PG (27.0-31.0) Mean Corpuscular Hemoglobin Concent 35.3 G/DL (32.0-36.0) Red Cell Distribution Width 11.2 % (11.6-14.8) L Platelet Count 262 K/UL (150-450) Mean Platelet Volume 7.1 FL (6.5-10.1) Neutrophils (%) (Auto) 76.7 % (45.0-75.0) H Lymphocytes (%) (Auto) 13.0 % (20.0-45.0) L Monocytes (%) (Auto) 9.9 % (1.0-10.0) Eosinophils (%) (Auto) 0.1 % (0.0-3.0) Basophils (%) (Auto) 0.3 % (0.0-2.0) Sodium Level 136 MMOL/L (136-145) Potassium Level 4.3 MMOL/L (3.5-5.1) Chloride Level 102 MMOL/L (98-107) Carbon Dioxide Level 25 MMOL/L (21-32) Anion Gap 10 mmol/L (5-15) Blood Urea Nitrogen 17 mg/dL (7-18) Creatinine 0.9 MG/DL (0.55-1.30) Estimat Glomerular Filtration Rate > 60 mL/min (>60) Glucose Level 132 MG/DL (74-106) H Uric Acid 4.8 MG/DL (2.6-7.2) Calcium Level 9.0 MG/DL (8.5-10.1) Phosphorus Level 1.6 MG/DL (2.5-4.9) L Magnesium Level 2.3 MG/DL (1.8-2.4) Total Bilirubin 0.6 MG/DL (0.2-1.0) Aspartate Amino Transf (AST/SGOT) 20 U/L (15-37) Alanine Aminotransferase (ALT/SGPT) 13 U/L (12-78) Alkaline Phosphatase 193 U/L (46-116) H C-Reactive Protein, Quantitative 19.6 mg/dL (0.00-0.90) H Total Protein 7.5 G/DL (6.4-8.2) Albumin 2.9 G/DL (3.4-5.0) L Globulin 4.6 g/dL Albumin/Globulin Ratio 0.6 (1.0-2.7) L Height (Feet): 5 Height (Inches): 11.00 Weight (Pounds): 146 Medications Current Medications Medications (Trade) Dose Ordered Sig/Sajan Route PRN Reason Start Time Stop Time Status Last Admin Dose Admin Acetaminophen (Tylenol) 500 mg Q4H PRN ORAL Mild Pain/Temp > 100.5 04/19/19 23:00 05/19/19 22:59 Escitalopram Oxalate (Lexapro) 10 mg DAILY ORAL 04/20/19 09:00 05/20/19 08:59 04/20/19 08:45 Fludrocortisone Acetate (Florinef) 0.1 mg DAILY ORAL 04/21/19 09:00 05/21/19 08:59 Hydrocortisone (Cortef) 10 mg BEFORE DINNER ORAL 04/21/19 16:30 05/21/19 16:29 Hydrocortisone (Cortef) 20 mg DAILY ORAL 04/21/19 09:00 05/21/19 08:59 Levothyroxine Sodium (Synthroid) 75 mcg DAILY@0630 ORAL 04/20/19 06:30 05/20/19 06:29 04/21/19 06:32 Assessment/Plan Assessment/Plan: Hematology Consultation REQ MD: Yashira Alba DOS: 04/21/19 RFC: Anemia, leukopenia HPI 53-year-old male history of [place]'s duties presents with 4 days without his hydrocortisone he takes 20 mg during the day, 10 mg at night, patient states he has been weak he denies any chest pain or shortness of breath he feels generalized weakness no aggravating or alleviating factors, severity is moderate , constant, patient denies any fevers chills cough congestion. He endorses a generalized body ache. Seen by endo, started on steriods iv, and heme consulted for eval and rx. Allergies: Coded Allergies: CYCLOBENZAPRINE (Verified Allergy, Unknown, 10/07/18) FEXOFENADINE (Verified Allergy, Unknown, 10/07/18) TAMSULOSIN (Verified Allergy, Unknown, 04/19/19) Patient History Past Medical History: see triage record Reviewed Nursing Documentation: PMH: Agreed; PSxH: Agreed Nursing Documentation-PMH Past Medical History: No History, Except For Hx COPD: Yes Hx Dizziness: Yes Hx Syncope: Yes Review of Systems All Other Systems: negative except mentioned in HPI Physical Exam Vitals: reviewed, normal Gen: nad Pulm: Ctab, no cwr CV: rrr. no mgr GI: non tender, soft, no guarding, no rebound Msk: normal inspection Skin: no rash, warm/dry Labs: noted Imaging: reviewed Assessment and Recs: # Leukopenia at this time, wbc was 3 range, potentially due to viral v other cause, meds reviewed, has been noncompliant with meds --> hepatitis and hiv ordered --> imaging abd us but only as needed --> neupogen on prn basis to get anc >1500 --> consider further eval, neutropenic precaut as needed # Anemia due to chronic disease --> anemia panel has been ordered and reviewed prior --> hgb trend 13-->11 --> monitor for hemolysis --> smear has been reviewed # [place] disease --> steriods as required --> endo eval reviewed # Hyponatremia --> trend Na as needed # Dehydration ==> ivf has been started Greatly appreciate consultation. Bradley Tong MD Apr 21, 2019 08:38
[2019-04-21] MEDS ORDERED: Phospha 250 Neutral tab ORAL SCH ×2 (13:00→18:00)
--- NOTE | 2019-04-21 13:14 | Nephrology Progress Note ---
Assessment/Plan Problem List: (1) Dehydration (2) Hyponatremia (3) Adrenal insufficiency (4) Hypothyroid Assessment Renal failure , mainly dehydration Dehydration Hyponatremia, partly dave's , partly dehydration HypoTension Urine + for amphetamines and MJ Plan Plan: DC saline Hydrocortisone PO Monitor renal parameters and lytes per orders mag and Phos supplement as needed non monitor bed Subjective ROS Limited/Unobtainable: No Objective Objective Last 24 Hour Vital Signs Date Time Temp Pulse Resp B/P (MAP) Pulse Ox O2 Delivery O2 Flow Rate FiO2 04/21/19 12:00 97.3 97 20 112/76 (88) 98 04/21/19 09:00 Room Air 04/21/19 08:00 99 04/21/19 08:00 98.1 98 20 107/73 (84) 98 04/21/19 04:00 94 04/21/19 04:00 97.2 92 20 116/81 (93) 98 04/21/19 00:00 97.3 111 20 105/70 (82) 98 04/21/19 00:00 107 04/20/19 21:00 Room Air 04/20/19 20:00 106 04/20/19 20:00 98.2 103 18 114/80 (91) 98 04/20/19 16:00 99 04/20/19 16:00 98.5 103 23 115/76 (89) 98 Intake and Output 04/20/19 04/21/19 19:00 07:00 Intake Total 1158 ml Output Total 4 ml Balance -4 ml 1158 ml Intake Oral 350 ml IV Total 808 ml Output Urine Total 4 ml # Voids 4 Laboratory Tests 04/21/19 05:34: White Blood Count 5.1, Red Blood Count 3.82L, Hemoglobin 11.2L, Hematocrit 31.8L , Mean Corpuscular Volume 83, Mean Corpuscular Hemoglobin 29.4, Mean Corpuscular Hemoglobin Concent 35.3, Red Cell Distribution Width 11.2L, Platelet Count 262, Mean Platelet Volume 7.1, Neutrophils (%) (Auto) 76.7H, Lymphocytes (%) (Auto) 13.0L, Monocytes (%) (Auto) 9.9, Eosinophils (%) (Auto) 0.1, Basophils (%) (Auto) 0.3, Sodium Level 136, Potassium Level 4.3, Chloride Level 102, Carbon Dioxide Level 25, Anion Gap 10, Blood Urea Nitrogen 17, Creatinine 0.9, Estimat Glomerular Filtration Rate > 60, Glucose Level 132H, Uric Acid 4.8, Calcium Level 9.0, Phosphorus Level 1.6L, Magnesium Level 2.3, Total Bilirubin 0.6, Aspartate Amino Transf (AST/SGOT) 20, Alanine Aminotransferase (ALT/SGPT) 13, Alkaline Phosphatase 193H, C-Reactive Protein, Quantitative 19.6H, Total Protein 7.5, Albumin 2.9L, Globulin 4.6, Albumin/ Globulin Ratio 0.6L 04/21/19 06:34: Hepatitis A IgM Antibody [Pending], Hepatitis B Surface Antigen [Pending], Hepatitis B Core IgM Antibody [Pending], Hepatitis C Antibody [Pending], HIV (1& 2) Antibody Rapid Negative Height (Feet): 5 Height (Inches): 11.00 Weight (Pounds): 146 General Appearance: no apparent distress Objective no change Jeferson Koehler MD Apr 21, 2019 13:14
[2019-04-21] MEDS ORDERED: Acetaminophen 500mg (ES) tab ORAL PRN (15:30)
--- NOTE | 2019-04-21 21:36 | General Progress Note ---
Assessment/Plan Problem List: (1) [place] disease ICD Codes: E27.1 - Primary adrenocortical insufficiency SNOMED: 318351390 (2) Adrenal insufficiency ICD Codes: E27.40 - Unspecified adrenocortical insufficiency SNOMED: 650073601 (3) Hypothyroid ICD Codes: E03.9 - Hypothyroidism, unspecified SNOMED: 56844944 Status: progressing, tolerating diet Assessment/Plan: afebrile nac dave disease weak re wrote steroid prescription afebrile Subjective ROS Limited/Unobtainable: Yes Allergies: Coded Allergies: CYCLOBENZAPRINE (Verified Allergy, Unknown, 10/07/18) FEXOFENADINE (Verified Allergy, Unknown, 10/07/18) FLUDROCORTISONE (Verified Allergy, Unknown, 04/21/19) patient said he got really sick on this medication TAMSULOSIN (Verified Allergy, Unknown, 04/19/19) Objective Last 24 Hour Vital Signs Date Time Temp Pulse Resp B/P (MAP) Pulse Ox O2 Delivery O2 Flow Rate FiO2 04/21/19 16:00 97.7 91 20 110/75 (87) 97 04/21/19 15:40 97.8 81 20 108/67 (81) 99 04/21/19 12:00 91 04/21/19 12:00 97.3 97 20 112/76 (88) 98 04/21/19 09:00 Room Air 04/21/19 08:00 99 04/21/19 08:00 98.1 98 20 107/73 (84) 98 04/21/19 04:00 94 04/21/19 04:00 97.2 92 20 116/81 (93) 98 04/21/19 00:00 97.3 111 20 105/70 (82) 98 04/21/19 00:00 107 Intake and Output 04/20/19 04/21/19 18:59 06:59 Intake Total 75 ml 1158 ml Output Total 4 ml Balance 71 ml 1158 ml Intake Oral 350 ml IV Total 75 ml 808 ml Output Urine Total 4 ml # Voids 4 Laboratory Tests 04/21/19 05:34: White Blood Count 5.1, Red Blood Count 3.82L, Hemoglobin 11.2L, Hematocrit 31.8L , Mean Corpuscular Volume 83, Mean Corpuscular Hemoglobin 29.4, Mean Corpuscular Hemoglobin Concent 35.3, Red Cell Distribution Width 11.2L, Platelet Count 262, Mean Platelet Volume 7.1, Neutrophils (%) (Auto) 76.7H, Lymphocytes (%) (Auto) 13.0L, Monocytes (%) (Auto) 9.9, Eosinophils (%) (Auto) 0.1, Basophils (%) (Auto) 0.3, Sodium Level 136, Potassium Level 4.3, Chloride Level 102, Carbon Dioxide Level 25, Anion Gap 10, Blood Urea Nitrogen 17, Creatinine 0.9, Estimat Glomerular Filtration Rate > 60, Glucose Level 132H, Uric Acid 4.8, Calcium Level 9.0, Phosphorus Level 1.6L, Magnesium Level 2.3, Total Bilirubin 0.6, Aspartate Amino Transf (AST/SGOT) 20, Alanine Aminotransferase (ALT/SGPT) 13, Alkaline Phosphatase 193H, C-Reactive Protein, Quantitative 19.6H, Total Protein 7.5, Albumin 2.9L, Globulin 4.6, Albumin/ Globulin Ratio 0.6L 04/21/19 06:34: Hepatitis A IgM Antibody [Pending], Hepatitis B Surface Antigen [Pending], Hepatitis B Core IgM Antibody [Pending], Hepatitis C Antibody [Pending], HIV (1& 2) Antibody Rapid Negative Height (Feet): 5 Height (Inches): 11.00 Weight (Pounds): 146 Cardiovascular: normal rate Respiratory/Chest: lungs clear Abdomen: soft Yashira Ramirez MD Apr 21, 2019 21:36
[2019-04-22] VITALS: BP 123/74
[2019-04-22 04:00] VITALS: BP 115/79
--- NOTE | 2019-04-22 06:41 | General Progress Note ---
Assessment/Plan Problem List: (1) Hypothyroid ICD Codes: E03.9 - Hypothyroidism, unspecified SNOMED: 82086379 (2) [place] disease ICD Codes: E27.1 - Primary adrenocortical insufficiency SNOMED: 645934752 (3) Hyponatremia ICD Codes: E87.1 - Hypo-osmolality and hyponatremia SNOMED: 45977282 (4) Adrenal insufficiency ICD Codes: E27.40 - Unspecified adrenocortical insufficiency SNOMED: 541694033 Status: progressing, tolerating diet Assessment/Plan: continue Cortef 20 mg am /10 mg pm Rx for Cortef called in to the patient's pharmacy Subjective Allergies: Coded Allergies: CYCLOBENZAPRINE (Verified Allergy, Unknown, 10/07/18) FEXOFENADINE (Verified Allergy, Unknown, 10/07/18) FLUDROCORTISONE (Verified Allergy, Unknown, 04/21/19) patient said he got really sick on this medication TAMSULOSIN (Verified Allergy, Unknown, 04/19/19) All Systems: reviewed and negative except above Subjective events noted Objective Last 24 Hour Vital Signs Date Time Temp Pulse Resp B/P (MAP) Pulse Ox O2 Delivery O2 Flow Rate FiO2 04/22/19 04:00 97.7 90 20 115/79 (91) 97 04/22/19 00:00 98.2 92 20 123/74 (90) 97 04/21/19 22:32 Room Air 04/21/19 20:00 97.7 97 20 115/77 (90) 97 04/21/19 16:00 97.7 91 20 110/75 (87) 97 04/21/19 15:40 97.8 81 20 108/67 (81) 99 04/21/19 12:00 91 04/21/19 12:00 97.3 97 20 112/76 (88) 98 04/21/19 09:00 Room Air 04/21/19 08:00 99 04/21/19 08:00 98.1 98 20 107/73 (84) 98 Intake and Output 04/21/19 04/22/19 19:00 07:00 Intake Total 570 ml Output Total 500 ml Balance 70 ml Intake Oral 570 ml Output Urine Total 500 ml # Voids 3 Height (Feet): 5 Height (Inches): 11.00 Weight (Pounds): 146 General Appearance: no apparent distress Neck: normal alignment Cardiovascular: normal peripheral pulses Respiratory/Chest: lungs clear Abdomen: normal bowel sounds Objective Current Medications Medications (Trade) Dose Ordered Sig/Sajan Route PRN Reason Start Time Stop Time Status Last Admin Dose Admin Acetaminophen (Tylenol) 500 mg Q4H PRN ORAL Mild Pain/Temp > 100.5 04/21/19 15:30 05/19/19 15:29 Escitalopram Oxalate (Lexapro) 10 mg DAILY ORAL 04/22/19 09:00 05/20/19 08:59 Hydrocortisone (Cortef) 10 mg BEFORE DINNER ORAL 04/21/19 16:30 05/21/19 16:29 04/21/19 17:03 Hydrocortisone (Cortef) 20 mg DAILY ORAL 04/22/19 09:00 05/21/19 08:59 Levothyroxine Sodium (Synthroid) 75 mcg DAILY@0630 ORAL 04/22/19 06:30 05/20/19 06:29 04/22/19 05:39 Phosphorus (Phospha 250 Neutral) 500 mg THREE TIMES A DAY ORAL 04/21/19 18:00 05/21/19 12:59 04/21/19 17:03 Yong Montoya MD Apr 22, 2019 06:41
[2019-04-22 07:02] LABS: BASOPHILS % (AUTO) 0.4 % (0.0-2.0); EOSINOPHILS % (AUTO) 0.6 % (0.0-3.0); HEMATOCRIT 30.2 % (42.0-52.0); HEMOGLOBIN 10.5 G/DL (14.2-18.0); LYMPHOCYTES % (AUTO) 34.5 % (20.0-45.0); MEAN CORPUSCULAR VOLUME 81 FL (80-99); MONOCYTES % (AUTO) 10.9 % (1.0-10.0); NEUTROPHILS % (AUTO) 53.6 % (45.0-75.0); PLATELET COUNT 239 K/UL (150-450); RED BLOOD COUNT 3.71 M/UL (4.70-6.10); RED CELL DISTRIBUTION WIDTH 12.1 % (11.6-14.8); WHITE BLOOD COUNT 4.2 K/UL (4.8-10.8)
[2019-04-22 07:25] LABS: ALANINE AMINOTRANSFERASE 21 U/L (12-78); ALBUMIN 2.8 G/DL (3.4-5.0); ALBUMIN/GLOBULIN RATIO 0.7 (1.0-2.7); ALKALINE PHOSPHATASE 178 U/L (46-116); ANION GAP 9 mmol/L (5-15); ASPARTATE AMINO TRANSFERASE 36 U/L (15-37); BILIRUBIN,TOTAL 0.5 MG/DL (0.2-1.0); BLOOD UREA NITROGEN 12 mg/dL (7-18); CALCIUM 8.6 MG/DL (8.5-10.1); CARBON DIOXIDE 28 MMOL/L (21-32); CHLORIDE 103 MMOL/L (98-107); CREATININE 0.9 MG/DL (0.55-1.30); PHOSPHORUS 2.6 MG/DL (2.5-4.9); POTASSIUM 3.4 MMOL/L (3.5-5.1); SODIUM 140 MMOL/L (136-145)
[2019-04-22 08:00] VITALS: BP 118/81
--- NOTE | 2019-04-22 08:57 | Nephrology Progress Note ---
Assessment/Plan Problem List: (1) Dehydration (2) Hyponatremia (3) Adrenal insufficiency (4) Hypothyroid Assessment Renal failure , mainly dehydration Dehydration Hyponatremia, partly dave's , partly dehydration HypoTension Urine + for amphetamines and MJ Plan Plan: DC saline Hydrocortisone PO Monitor renal parameters and lytes per orders mag and Phos supplement as needed non monitor bed Subjective ROS Limited/Unobtainable: No Objective Objective Last 24 Hour Vital Signs Date Time Temp Pulse Resp B/P (MAP) Pulse Ox O2 Delivery O2 Flow Rate FiO2 04/22/19 04:00 97.7 90 20 115/79 (91) 97 04/22/19 00:00 98.2 92 20 123/74 (90) 97 04/21/19 22:32 Room Air 04/21/19 20:00 97.7 97 20 115/77 (90) 97 04/21/19 16:00 97.7 91 20 110/75 (87) 97 04/21/19 15:40 97.8 81 20 108/67 (81) 99 04/21/19 12:00 91 04/21/19 12:00 97.3 97 20 112/76 (88) 98 04/21/19 09:00 Room Air Intake and Output 04/21/19 04/22/19 19:00 07:00 Intake Total 570 ml Output Total 500 ml Balance 70 ml Intake Oral 570 ml Output Urine Total 500 ml # Voids 3 Current Medications Medications (Trade) Dose Ordered Sig/Sajan Route PRN Reason Start Time Stop Time Status Last Admin Dose Admin Acetaminophen (Tylenol) 500 mg Q4H PRN ORAL Mild Pain/Temp > 100.5 04/21/19 15:30 05/19/19 15:29 Escitalopram Oxalate (Lexapro) 10 mg DAILY ORAL 04/22/19 09:00 05/20/19 08:59 Hydrocortisone (Cortef) 10 mg BEFORE DINNER ORAL 04/21/19 16:30 05/21/19 16:29 04/21/19 17:03 Hydrocortisone (Cortef) 20 mg DAILY ORAL 04/22/19 09:00 05/21/19 08:59 Levothyroxine Sodium (Synthroid) 75 mcg DAILY@0630 ORAL 04/22/19 06:30 05/20/19 06:29 04/22/19 05:39 Potassium Chloride (K-Dur) 40 meq DAILY ORAL 04/22/19 09:00 05/22/19 08:59 Laboratory Tests 04/22/19 05:15: White Blood Count 4.2L, Red Blood Count 3.71L, Hemoglobin 10.5L, Hematocrit 30.2L, Mean Corpuscular Volume 81, Mean Corpuscular Hemoglobin 28.3, Mean Corpuscular Hemoglobin Concent 34.7, Red Cell Distribution Width 12.1, Platelet Count 239, Mean Platelet Volume 6.5, Neutrophils (%) (Auto) 53.6, Lymphocytes (% ) (Auto) 34.5, Monocytes (%) (Auto) 10.9H, Eosinophils (%) (Auto) 0.6, Basophils (%) (Auto) 0.4, Sodium Level 140, Potassium Level 3.4L, Chloride Level 103, Carbon Dioxide Level 28, Anion Gap 9, Blood Urea Nitrogen 12, Creatinine 0.9, Estimat Glomerular Filtration Rate > 60, Glucose Level 94, Uric Acid 2.9, Calcium Level 8.6, Phosphorus Level 2.6, Magnesium Level 1.8, Total Bilirubin 0.5, Aspartate Amino Transf (AST/SGOT) 36, Alanine Aminotransferase ( ALT/SGPT) 21, Alkaline Phosphatase 178H, Total Protein 6.9, Albumin 2.8L, Globulin 4.1, Albumin/Globulin Ratio 0.7L Height (Feet): 5 Height (Inches): 11.00 Weight (Pounds): 145 General Appearance: no apparent distress Objective no change Jeferson Koehler MD Apr 22, 2019 08:57
--- NOTE | 2019-04-22 09:39 | Hematology/Onc Progress Note ---
Assessment/Plan Assessment/Plan Assessment and Recs: # Leukopenia at this time, wbc was 3 range, potentially due to viral v other cause, meds reviewed, has been noncompliant with meds --> hepatitis and hiv negative --> imaging abd us but only as needed --> neupogen on prn basis to get anc >1500 --> consider further eval, neutropenic precaut as needed --> wbc 3.9-->4.2 # Anemia due to chronic disease --> anemia panel has been ordered and reviewed prior --> hgb trend 13-->11-->10.5 --> monitor for hemolysis --> smear has been reviewed # [place] disease --> steroids as required --> endo eval reviewed # Hyponatremia --> trend Na as needed # Dehydration ==> ivf has been started Greatly appreciate consultation. Subjective Constitutional: Denies: no symptoms, chills, fever, malaise, weakness, other HEENT: Denies: no symptoms, eye pain, blurred vision, tearing, double vision, ear pain, ear discharge, nose pain, nose congestion, throat pain, throat swelling, mouth pain, mouth swelling, other Cardiovascular: Denies: no symptoms, chest pain, edema, irregular heart rate, lightheadedness, palpitations, syncope, other Respiratory: Denies: no symptoms, cough, shortness of breath, SOB with excertion, SOB at rest, sputum, wheezing, other Genitourinary: Denies: no symptoms, burning, discharge, frequency, flank pain, hematuria, incontinence, pain, urgency, other Neurologic/Psychiatric: Denies: no symptoms, anxiety, depressed, emotional problems, headache, numbness, paresthesia, pre-existing deficit, seizure, tingling, tremors, weakness, other Endocrine: Denies: no symptoms, excessive sweating, flushing, intolerance to cold, intolerance to heat, increased hunger, increased thirst, increased urine, unexplained weight gain, unexplained weight loss, other Hematologic/Lymphatic: Denies: no symptoms, anemia, easy bleeding, easy bruising, adenopathy, other Allergies: Coded Allergies: CYCLOBENZAPRINE (Verified Allergy, Unknown, 10/07/18) FEXOFENADINE (Verified Allergy, Unknown, 10/07/18) FLUDROCORTISONE (Verified Allergy, Unknown, 04/21/19) patient said he got really sick on this medication TAMSULOSIN (Verified Allergy, Unknown, 04/19/19) Subjective 04/22: ordered and for dc today, labs noted Objective Objective Current Medications Medications (Trade) Dose Ordered Sig/Sajan Route PRN Reason Start Time Stop Time Status Last Admin Dose Admin Acetaminophen (Tylenol) 500 mg Q4H PRN ORAL Mild Pain/Temp > 100.5 04/21/19 15:30 05/19/19 15:29 Escitalopram Oxalate (Lexapro) 10 mg DAILY ORAL 04/22/19 09:00 05/20/19 08:59 04/22/19 09:36 Hydrocortisone (Cortef) 10 mg BEFORE DINNER ORAL 04/21/19 16:30 05/21/19 16:29 04/21/19 17:03 Hydrocortisone (Cortef) 20 mg DAILY ORAL 04/22/19 09:00 05/21/19 08:59 04/22/19 09:37 Levothyroxine Sodium (Synthroid) 75 mcg DAILY@0630 ORAL 04/22/19 06:30 05/20/19 06:29 04/22/19 05:39 Potassium Chloride (K-Dur) 40 meq DAILY ORAL 04/22/19 09:00 05/22/19 08:59 04/22/19 09:37 Last 24 Hour Vital Signs Date Time Temp Pulse Resp B/P (MAP) Pulse Ox O2 Delivery O2 Flow Rate FiO2 04/22/19 08:00 97.5 98 16 118/81 (93) 95 04/22/19 04:00 97.7 90 20 115/79 (91) 97 04/22/19 00:00 98.2 92 20 123/74 (90) 97 04/21/19 22:32 Room Air 04/21/19 20:00 97.7 97 20 115/77 (90) 97 04/21/19 16:00 97.7 91 20 110/75 (87) 97 04/21/19 15:40 97.8 81 20 108/67 (81) 99 04/21/19 12:00 91 04/21/19 12:00 97.3 97 20 112/76 (88) 98 04/21/19 09:00 Room Air 04/21/19 08:00 99 04/21/19 08:00 98.1 98 20 107/73 (84) 98 04/21/19 04:00 94 04/21/19 04:00 97.2 92 20 116/81 (93) 98 04/21/19 00:00 97.3 111 20 105/70 (82) 98 04/21/19 00:00 107 04/20/19 21:00 Room Air 04/20/19 20:00 106 04/20/19 20:00 98.2 103 18 114/80 (91) 98 04/20/19 16:00 99 04/20/19 16:00 98.5 103 23 115/76 (89) 98 04/20/19 12:00 93 04/20/19 12:00 97.3 92 20 100/69 (79) 96 Intake and Output 04/21/19 04/22/19 19:00 07:00 Intake Total 570 ml Output Total 500 ml Balance 70 ml Intake Oral 570 ml Output Urine Total 500 ml # Voids 3 Labs Test 04/19/19 18:55 04/19/19 20:27 04/20/19 05:30 04/21/19 05:34 White Blood Count 5.9 K/UL (4.8-10.8) 3.9 K/UL (4.8-10.8) 5.1 K/UL (4.8-10.8) Red Blood Count 4.79 M/UL (4.70-6.10) 4.65 M/UL (4.70-6.10) 3.82 M/UL (4.70-6.10) Hemoglobin 14.0 G/DL (14.2-18.0) 13.3 G/DL (14.2-18.0) 11.2 G/DL (14.2-18.0) Hematocrit 40.0 % (42.0-52.0) 38.0 % (42.0-52.0) 31.8 % (42.0-52.0) Mean Corpuscular Volume 83 FL (80-99) 82 FL (80-99) 83 FL (80-99) Mean Corpuscular Hemoglobin 29.2 PG (27.0-31.0) 28.6 PG (27.0-31.0) 29.4 PG (27.0-31.0) Mean Corpuscular Hemoglobin Concent 35.1 G/DL (32.0-36.0) 35.0 G/DL (32.0-36.0) 35.3 G/DL (32.0-36.0) Red Cell Distribution Width 11.7 % (11.6-14.8) 12.3 % (11.6-14.8) 11.2 % (11.6-14.8) Platelet Count 333 K/UL (150-450) 322 K/UL (150-450) 262 K/UL (150-450) Mean Platelet Volume 7.1 FL (6.5-10.1) 6.6 FL (6.5-10.1) 7.1 FL (6.5-10.1) Neutrophils (%) (Auto) 63.7 % (45.0-75.0) 83.4 % (45.0-75.0) 76.7 % (45.0-75.0) Lymphocytes (%) (Auto) 17.1 % (20.0-45.0) 10.2 % (20.0-45.0) 13.0 % (20.0-45.0) Monocytes (%) (Auto) 14.8 % (1.0-10.0) 6.0 % (1.0-10.0) 9.9 % (1.0-10.0) Eosinophils (%) (Auto) 3.0 % (0.0-3.0) 0.2 % (0.0-3.0) 0.1 % (0.0-3.0) Basophils (%) (Auto) 1.4 % (0.0-2.0) 0.2 % (0.0-2.0) 0.3 % (0.0-2.0) Prothrombin Time 11.1 SEC (9.30-11.50) Prothromb Time International Ratio 1.0 (0.9-1.1) Activated Partial Thromboplast Time 42 SEC (23-33) Sodium Level 127 MMOL/L (136-145) 130 MMOL/L (136-145) 136 MMOL/L (136-145) Potassium Level 3.7 MMOL/L (3.5-5.1) 4.5 MMOL/L (3.5-5.1) 4.3 MMOL/L (3.5-5.1) Chloride Level 90 MMOL/L (98-107) 96 MMOL/L (98-107) 102 MMOL/L (98-107) Carbon Dioxide Level 22 MMOL/L (21-32) 21 MMOL/L (21-32) 25 MMOL/L (21-32) Anion Gap 15 mmol/L (5-15) 13 mmol/L (5-15) 10 mmol/L (5-15) Blood Urea Nitrogen 28 mg/dL (7-18) 22 mg/dL (7-18) 17 mg/dL (7-18) Creatinine 1.3 MG/DL (0.55-1.30) 1.1 MG/DL (0.55-1.30) 0.9 MG/DL (0.55-1.30) Estimat Glomerular Filtration Rate 58.0 mL/min (>60) > 60 mL/min (>60) > 60 mL/min (>60) Glucose Level 136 MG/DL (74-106) 129 MG/DL (74-106) 132 MG/DL (74-106) Lactic Acid Level 1.10 mmol/L (0.4-2.0) Calcium Level 9.7 MG/DL (8.5-10.1) 9.3 MG/DL (8.5-10.1) 9.0 MG/DL (8.5-10.1) Phosphorus Level 3.5 MG/DL (2.5-4.9) 4.1 MG/DL (2.5-4.9) 1.6 MG/DL (2.5-4.9) Magnesium Level 1.6 MG/DL (1.8-2.4) 1.6 MG/DL (1.8-2.4) 2.3 MG/DL (1.8-2.4) Total Bilirubin 1.6 MG/DL (0.2-1.0) 1.1 MG/DL (0.2-1.0) 0.6 MG/DL (0.2-1.0) Direct Bilirubin 0.6 MG/DL (0.0-0.3) 0.4 MG/DL (0.0-0.3) Aspartate Amino Transf (AST/SGOT) 20 U/L (15-37) 17 U/L (15-37) 20 U/L (15-37) Alanine Aminotransferase (ALT/SGPT) 13 U/L (12-78) 14 U/L (12-78) 13 U/L (12-78) Alkaline Phosphatase 256 U/L (46-116) 218 U/L (46-116) 193 U/L (46-116) Total Creatine Kinase 25 U/L (26-308) Creatine Kinase MB < 0.5 NG/ML (0.0-3.6) Creatine Kinase MB Relative Index 2.0 Troponin I 0.000 ng/mL (0.000-0.056) Pro-B-Type Natriuretic Peptide 32 pg/mL (0-125) 47 pg/mL (0-125) Total Protein 8.7 G/DL (6.4-8.2) 8.0 G/DL (6.4-8.2) 7.5 G/DL (6.4-8.2) Albumin 3.2 G/DL (3.4-5.0) 3.0 G/DL (3.4-5.0) 2.9 G/DL (3.4-5.0) Globulin 5.5 g/dL 5.0 g/dL 4.6 g/dL Albumin/Globulin Ratio 0.6 (1.0-2.7) 0.6 (1.0-2.7) 0.6 (1.0-2.7) Lipase 121 U/L (73-393) Urine Color Yellow Urine Appearance Clear Urine pH 5 (4.5-8.0) Urine Specific [place] 1.020 (1.005-1.035) Urine Protein 1+ (NEGATIVE) Urine Glucose (UA) Negative (NEGATIVE) Urine Ketones 4+ (NEGATIVE) Urine Blood 4+ (NEGATIVE) Urine Nitrite Negative (NEGATIVE) Urine Bilirubin Negative (NEGATIVE) Urine Urobilinogen 1 MG/DL (0.0-1.0) Urine Leukocyte Esterase Negative (NEGATIVE) Urine RBC 2-4 /HPF (0 - 0) Urine WBC 0 /HPF (0 - 0) Urine Squamous Epithelial Cells Few /LPF (NONE/OCC) Urine Bacteria Few /HPF (NONE) Urine Hyaline Casts 2-4 /LPF (NONE) Urine Fine Granular Casts 2-4 /LPF (NONE) Urine Osmolality 600 mOsm/kg (429-449) Urine Random Sodium < 20 mmol/L (20-110) Urine Opiates Screen Negative (NEGATIVE) Urine Barbiturates Screen Negative (NEGATIVE) Phencyclidine (PCP) Screen Negative (NEGATIVE) Urine Amphetamines Screen Positive (NEGATIVE) Urine Benzodiazepines Screen Negative (NEGATIVE) Urine Cocaine Screen Negative (NEGATIVE) Urine Marijuana (THC) Screen Positive (NEGATIVE) Hemoglobin A1c 5.0 % (4.3-6.0) Osmolality 288 mOsm/kg (297-317) Uric Acid 10.1 MG/DL (2.6-7.2) 4.8 MG/DL (2.6-7.2) C-Reactive Protein, Quantitative 34.8 mg/dL (0.00-0.90) 19.6 mg/dL (0.00-0.90) Triglycerides Level 104 MG/DL (30-150) Cholesterol Level 184 MG/DL (< 200) LDL Cholesterol 136 mg/dL (<100) HDL Cholesterol 21 MG/DL (40-60) Cholesterol/HDL Ratio 8.8 (3.3-4.4) Thyroid Stimulating Hormone (TSH) 3.188 uiU/mL (0.358-3.740) Test 04/21/19 06:34 04/22/19 05:15 Hepatitis A IgM Antibody Negative (Negative) Hepatitis B Surface Antigen Negative (Negative) Hepatitis B Core IgM Antibody Negative (Negative) Hepatitis C Antibody <0.1 s/co ratio HIV (1&2) Antibody Rapid Negative (NEGATIVE) White Blood Count 4.2 K/UL (4.8-10.8) Red Blood Count 3.71 M/UL (4.70-6.10) Hemoglobin 10.5 G/DL (14.2-18.0) Hematocrit 30.2 % (42.0-52.0) Mean Corpuscular Volume 81 FL (80-99) Mean Corpuscular Hemoglobin 28.3 PG (27.0-31.0) Mean Corpuscular Hemoglobin Concent 34.7 G/DL (32.0-36.0) Red Cell Distribution Width 12.1 % (11.6-14.8) Platelet Count 239 K/UL (150-450) Mean Platelet Volume 6.5 FL (6.5-10.1) Neutrophils (%) (Auto) 53.6 % (45.0-75.0) Lymphocytes (%) (Auto) 34.5 % (20.0-45.0) Monocytes (%) (Auto) 10.9 % (1.0-10.0) Eosinophils (%) (Auto) 0.6 % (0.0-3.0) Basophils (%) (Auto) 0.4 % (0.0-2.0) Sodium Level 140 MMOL/L (136-145) Potassium Level 3.4 MMOL/L (3.5-5.1) Chloride Level 103 MMOL/L (98-107) Carbon Dioxide Level 28 MMOL/L (21-32) Anion Gap 9 mmol/L (5-15) Blood Urea Nitrogen 12 mg/dL (7-18) Creatinine 0.9 MG/DL (0.55-1.30) Estimat Glomerular Filtration Rate > 60 mL/min (>60) Glucose Level 94 MG/DL (74-106) Uric Acid 2.9 MG/DL (2.6-7.2) Calcium Level 8.6 MG/DL (8.5-10.1) Phosphorus Level 2.6 MG/DL (2.5-4.9) Magnesium Level 1.8 MG/DL (1.8-2.4) Total Bilirubin 0.5 MG/DL (0.2-1.0) Aspartate Amino Transf (AST/SGOT) 36 U/L (15-37) Alanine Aminotransferase (ALT/SGPT) 21 U/L (12-78) Alkaline Phosphatase 178 U/L (46-116) Total Protein 6.9 G/DL (6.4-8.2) Albumin 2.8 G/DL (3.4-5.0) Globulin 4.1 g/dL Albumin/Globulin Ratio 0.7 (1.0-2.7) Height (Feet): 5 Height (Inches): 11.00 Weight (Pounds): 145 Objective Vitals: reviewed, normal Gen: nad Pulm: Ctab, no cwr CV: rrr. no mgr GI: non tender, soft, no guarding, no rebound Msk: normal inspection Skin: no rash, warm/dry Bradley Tong MD Apr 22, 2019 09:39
[2019-04-22 12:00] VITALS: BP 121/85
--- NOTE | 2019-04-22 13:03 | General Progress Note ---
Assessment/Plan Problem List: (1) [place] disease ICD Codes: E27.1 - Primary adrenocortical insufficiency SNOMED: 126009745 (2) Adrenal insufficiency ICD Codes: E27.40 - Unspecified adrenocortical insufficiency SNOMED: 213389723 (3) Hypothyroid ICD Codes: E03.9 - Hypothyroidism, unspecified SNOMED: 97083752 Status: progressing, tolerating diet Assessment/Plan: cleared by dr gee so dc him today see dc summary for details re wrote steroid prescription afebrile Subjective ROS Limited/Unobtainable: Yes Allergies: Coded Allergies: CYCLOBENZAPRINE (Verified Allergy, Unknown, 10/07/18) FEXOFENADINE (Verified Allergy, Unknown, 10/07/18) FLUDROCORTISONE (Verified Allergy, Unknown, 04/21/19) patient said he got really sick on this medication TAMSULOSIN (Verified Allergy, Unknown, 04/19/19) Objective Last 24 Hour Vital Signs Date Time Temp Pulse Resp B/P (MAP) Pulse Ox O2 Delivery O2 Flow Rate FiO2 04/22/19 12:00 97.7 98 17 121/85 (97) 98 04/22/19 09:00 Room Air 04/22/19 08:00 97.5 98 16 118/81 (93) 95 04/22/19 04:00 97.7 90 20 115/79 (91) 97 04/22/19 00:00 98.2 92 20 123/74 (90) 97 04/21/19 22:32 Room Air 04/21/19 20:00 97.7 97 20 115/77 (90) 97 04/21/19 16:00 97.7 91 20 110/75 (87) 97 04/21/19 15:40 97.8 81 20 108/67 (81) 99 Intake and Output 04/21/19 04/22/19 19:00 07:00 Intake Total 570 ml Output Total 500 ml Balance 70 ml Intake Oral 570 ml Output Urine Total 500 ml # Voids 3 Laboratory Tests 04/22/19 05:15: White Blood Count 4.2L, Red Blood Count 3.71L, Hemoglobin 10.5L, Hematocrit 30.2L, Mean Corpuscular Volume 81, Mean Corpuscular Hemoglobin 28.3, Mean Corpuscular Hemoglobin Concent 34.7, Red Cell Distribution Width 12.1, Platelet Count 239, Mean Platelet Volume 6.5, Neutrophils (%) (Auto) 53.6, Lymphocytes (% ) (Auto) 34.5, Monocytes (%) (Auto) 10.9H, Eosinophils (%) (Auto) 0.6, Basophils (%) (Auto) 0.4, Sodium Level 140, Potassium Level 3.4L, Chloride Level 103, Carbon Dioxide Level 28, Anion Gap 9, Blood Urea Nitrogen 12, Creatinine 0.9, Estimat Glomerular Filtration Rate > 60, Glucose Level 94, Uric Acid 2.9, Calcium Level 8.6, Phosphorus Level 2.6, Magnesium Level 1.8, Total Bilirubin 0.5, Aspartate Amino Transf (AST/SGOT) 36, Alanine Aminotransferase ( ALT/SGPT) 21, Alkaline Phosphatase 178H, Total Protein 6.9, Albumin 2.8L, Globulin 4.1, Albumin/Globulin Ratio 0.7L Height (Feet): 5 Height (Inches): 11.00 Weight (Pounds): 145 Cardiovascular: normal rate Yashira Ramirez MD Apr 22, 2019 13:03
--- NOTE | 2019-04-22 20:30 | Discharge Summary ---
Discharge Summary Discharge Summary _ DATE OF ADMISSION: 04/19/2019 DATE OF DISCHARGE: 04/22/2019 DISCHARGED BY: Dr. Snell REASON FOR ADMISSION: 53 years old male with past medical history of [place]'s disease, COPD, presented with 4 days without taking hydrocortisone. He usually takes 20 mg in the morning and 10 mg at 9. Patient reported generalized weakness, but he denies chest pain and shortness of breath. No fevers no chills. Upon evaluation vital signs revealed tachycardia heart rate 125 no fevers. Laboratory work-up revealed no leukocytosis stable hemoglobin hematocrit. Sodium 127. Potassium 3.7. Chloride 90. Anion gap 15. BUN 28, creatinine 1.3. Glucose 136. Lactic acid 1.1. Magnesium 1.6. Phosphorus 3.5. Lipase 121. Urinalysis revealed +1 protein, +4 ketones plus for blood no pyuria few bacteria and some hyaline casts and 5 granular cough. Patient received 100 mg of hydrocortisone in the emergency department and fluids and received fluid bolus. Patient subsequently admitted to telemetry floor. Urine toxicology screen was positive for amphetamine and marijuana. Troponin negative. EKG reveals sinus tachycardia no acute ischemic changes. Chest x-ray revealed no acute cardiopulmonary pathology. CONSULTANTS: superior court clerk Dr. Koehler carding supervisor/oncologist Dr. Tong qa auditor [facility]: [] Patient admitted to telemetry floor. Patient received 3% saline solution. Patient started on hydrocortisone. Renal parameters electrolytes were closely monitor electrolytes further corrected as needed. Per patient had a dehydration and renal failure was likely due to dehydration as per superior court clerk. Hyponatremia was partially Shira partially due to dehydration. Prior to discharge BUN 12, creatinine 0.9. Sodium 140 magnesium 1.8. Insole Rasper closely followed. Patient initially was on IV hydrocortisone 25 mg every 8 hours. Patient subsequently was converted to hydrocortisone pills. Patient also on levothyroxine 75 mcg daily daily which was resumed by qa auditor. TSH was within normal limits. Patient subsequently converted to 20 mg of Cortef in the morning and 10 mg at nighttime. Prescription for Cortef was provided by qa auditor. Airset Caster followed. Hemoglobin hematocrit for closely monitor with goal to keep hemoglobin above 7. Peripheral blood smear was reviewed. Prior to discharge hemoglobin 10.5 hematocrit 30.2. Patient is a evidence of leukopenia and upon discharge WBC 4.2. Lipid hepatitis panel was negative HIV test was nonreactive. Leukopenia was possibly due to viral or other causes. Patient clinically stabilized and was ready for discharge home. Patient was was counseled to abstain from illicit street drugs. Patient was advised on strict compliance with medication regimen and obtain new prescription prior to his medication FINAL DIAGNOSES: Adrenal insufficiency [place]'s disease Renal failure likely due to dehydration-resolved Dehydration Hyponatremia due to [place]'s disease and dehydration-resolved Hypotension-stabilized Amphetamine use Hypothyroidism Electrolyte abnormalities/potassium phosphorus magnesium DISCHARGE MEDICATIONS: See Medication Reconciliation list. DISCHARGE INSTRUCTIONS: Patient was discharged home. Follow up with primary care provider in one week. I have been assigned to dictate discharge summary for this account. I was not involved in the patient's management. Felicia Dutta NP Apr 22, 2019 20:30
== END 2019-04-22 14:40 | disposition home or self-care (01) | DRG 424 ==
LOC: EDUNIT# 18:38 → EDBD 18:38 → EMR 18:50 → 2E 19:28 → EDBEDREQ 20:18 → 2E 22:21 → 4E 04-21 16:00
DX: E27.1 Primary adrenocortical insufficiency (principal); E86.0 Dehydration; E87.1 Hypo-osmolality and hyponatremia; I95.9 Hypotension, unspecified; E03.9 Hypothyroidism, unspecified; D72.819 Decreased white blood cell count, unspecified; J44.9 Chronic obstructive pulmonary disease, unspecified; E87.8 Other disorders of electrolyte and fluid balance, not elsewhere classified; N19 Unspecified kidney failure; Z88.8 Allergy status to other drugs, medicaments and biological substances; D63.8 Anemia in other chronic diseases classified elsewhere; F15.90 Other stimulant use, unspecified, uncomplicated
CPT/HCPCS: 36415; 71045; 80053; 80061; 80307; 81003; 82248; 82550; 82553; 83036; 83605; 83690; 83735; 83880; 83930; 83935; 84100; 84300; 84443; 84484; 84550; 85025; 85610; 85730; 86140; 86703; 86705; 86709; 86803; 87040; 87340; 93005; 96361; 96374; 96375; 99285; C9399; J8499

== ENCOUNTER 2019-09-06 02:27 | Emergency (ER) | payer OTHER ==
[~2019-09-06] VITALS: Ht 170.2 cm; Wt 54.4 kg
[~2019-09-06 02:27] MED LIST changes: +HYDROCORTISONE10 MG PO
--- NOTE | 2019-09-06 02:31 | Emergency Room Report ---
History of Present Illness General Chief Complaint: Weakness Source: Patient Present Illness HPI 54-year-old male history of cancer, recently discharged from [facility], recently admitted for failure to thrive presents with reduced appetite, decreased p.o. intake, generalized weakness times a few days, no fevers no chills no abdominal pain severity is severe, constant, possibly aggravated by his current cancer, no alleviating factors patient presents via EMS Allergies: Coded Allergies: CYCLOBENZAPRINE (Verified Allergy, Unknown, 10/07/18) FEXOFENADINE (Verified Allergy, Unknown, 10/07/18) FLUDROCORTISONE (Verified Allergy, Unknown, 04/21/19) patient said he got really sick on this medication PSEUDOEPHEDRINE (Unverified Allergy, Unknown, 09/06/19) TAMSULOSIN (Verified Allergy, Unknown, 04/19/19) Patient History Past Medical History: see triage record Reviewed Nursing Documentation: PMH: Agreed; PSxH: Agreed Nursing Documentation-PMH Hx COPD: Yes Hx Dizziness: Yes Hx Syncope: Yes Review of Systems All Other Systems: negative except mentioned in HPI Physical Exam Sp02 EP Interpretation: reviewed, normal General Appearance: alert, cachetic, thin, Chronically Ill Head: normocephalic, atraumatic Eyes: bilateral eye PERRL, bilateral eye EOMI ENT: uvula midline, dry mucus membranes Neck: supple, thyroid normal, supple/symm/no masses Respiratory: lungs clear, no respiratory distress, no retraction, no accessory muscle use Cardiovascular #1: normal peripheral pulses, regular rate, rhythm, no edema, no gallop, no murmur Gastrointestinal: non tender, soft, no guarding, no rebound Musculoskeletal: normal inspection Neurologic: alert, oriented x3 Psychiatric: mood/affect normal Skin: no rash, warm/dry Medical Decision Making Diagnostic Impression: Primary Impression: Dehydration Additional Impressions: Failure to thrive in adult Pre[place] disease ER Course 54-year-old male presents with dehydration, cachectic nature, differential diagnosis includes dehydration, failure to thrive, UTI Patient given fluids, rehydration therapy We will admit patient for continued hydration Spoke with Dr. Aldridge at 5:17AM accepted patient. Will transfer patient Laboratory Tests Test 09/06/19 02:40 White Blood Count 3.1 K/UL (4.8-10.8) L Red Blood Count 3.47 M/UL (4.70-6.10) L Hemoglobin 9.7 G/DL (14.2-18.0) L Hematocrit 27.0 % (42.0-52.0) L Mean Corpuscular Volume 78 FL (80-99) L Mean Corpuscular Hemoglobin 27.8 PG (27.0-31.0) Mean Corpuscular Hemoglobin Concent 35.7 G/DL (32.0-36.0) Red Cell Distribution Width 12.3 % (11.6-14.8) Platelet Count 361 K/UL (150-450) Mean Platelet Volume 6.0 FL (6.5-10.1) L Neutrophils (%) (Auto) % (45.0-75.0) Lymphocytes (%) (Auto) % (20.0-45.0) Monocytes (%) (Auto) % (1.0-10.0) Eosinophils (%) (Auto) % (0.0-3.0) Basophils (%) (Auto) % (0.0-2.0) Neutrophils % (Manual) Pending Lymphocytes % (Manual) Pending Platelet Estimate Pending Platelet Morphology Pending Prothrombin Time 11.6 SEC (9.30-11.50) H Prothrombin Time INR 1.1 (0.9-1.1) Activated Partial Thromboplast Time 37 SEC (23-33) H Urine Color Pale yellow Urine Appearance Slightly cloudy Urine pH 5 (4.5-8.0) Urine Specific [place] 1.015 (1.005-1.035) Urine Protein 3+ (NEGATIVE) H Urine Glucose (UA) Negative (NEGATIVE) Urine Ketones 4+ (NEGATIVE) H Urine Blood 5+ (NEGATIVE) H Urine Nitrite Negative (NEGATIVE) Urine Bilirubin Negative (NEGATIVE) Urine Urobilinogen Normal MG/DL (0.0-1.0) Urine Leukocyte Esterase Negative (NEGATIVE) Urine RBC 60-80 /HPF (0 - 0) H Urine WBC 0-2 /HPF (0 - 0) Urine Squamous Epithelial Cells Occasional /LPF Urine Bacteria Few /HPF (NONE) Sodium Level 130 MMOL/L (136-145) L Potassium Level 3.9 MMOL/L (3.5-5.1) Chloride Level 94 MMOL/L (98-107) L Carbon Dioxide Level 26 MMOL/L (21-32) Anion Gap 10 mmol/L (5-15) Blood Urea Nitrogen 18 mg/dL (7-18) Creatinine 1.3 MG/DL (0.55-1.30) Estimate Glomerular Filtration Rate 57.7 mL/min (>60) Glucose Level 88 MG/DL (74-106) Lactic Acid Level 1.20 mmol/L (0.4-2.0) Calcium Level 8.2 MG/DL (8.5-10.1) L Phosphorus Level 3.3 MG/DL (2.5-4.9) Magnesium Level 1.3 MG/DL (1.8-2.4) L Total Bilirubin 0.5 MG/DL (0.2-1.0) Aspartate Amino Transferase (AST) 27 U/L (15-37) Alanine Aminotransferase (ALT) 16 U/L (12-78) Alkaline Phosphatase 243 U/L (46-116) H Total Creatine Kinase 25 U/L (26-308) L Creatine Kinase MB < 0.5 NG/ML (0.0-3.6) Creatine Kinase MB Relative Index 2.0 Troponin I 0.000 ng/mL (0.000-0.056) Pro-B-Type Natriuretic Peptide 1059 pg/mL (0-125) H Total Protein 7.6 G/DL (6.4-8.2) Albumin 2.8 G/DL (3.4-5.0) L Globulin 4.8 g/dL Albumin/Globulin Ratio 0.6 (1.0-2.7) L Lipase 198 U/L (73-393) EKG Diagnostic Results EKG Time: 03:09 EP Interpretation: NSR, rate 93, QTc 497, no acute ST elevations, normal axis Rhythm Strip Diag. Results Rhythm Strip Time: 05:16 EP Interpretation: yes Rate: 67 Rhythm: NSR, no PVC's, no ectopy Chest X-Ray Diagnostic Results Chest X-Ray Diagnostic Results : Chest X-Ray Ordered: Yes # of Views/Limited/Complete: 1 View Indication: Chest Pain EP Interpretation: Yes Interpretation: no consolidation, no effusion, no pneumothorax, no acute cardiopulmonary disease Impression: No acute disease Electronically Signed by: Bk Argueta MD [facility] Condition: Stable Bk Argueta MD Sep 06, 2019 02:31
[2019-09-06 02:35] VITALS: BP 150/107
--- NOTE | 2019-09-06 02:35 | NUR ---
ED Nurse Note: Pt brought in by RA from home c/o generalized weakness and weight loss x1 month. As per EMs, pt has been in and out of the hospital and has been recently diagnosed with prostate ca. Pt stated that he doesnt have an appetite and feels more lethargic. Pt has FC 18fr that has been placed 3 days ago, patent and draining well. Not in any distress. Pt placed on playground monitor.
--- NOTE | 2019-09-06 02:37 | NUR ---
ED Nurse Note: ERMD at bedside.
--- NOTE | 2019-09-06 02:41 | NUR ---
ED Nurse Note: IV line established. Blood and urine specimen collected and sent to lab.
[2019-09-06 03:44] LABS: APPEARANCE,URINE SLIGHTLY CLOUDY; BILIRUBIN, URINE NEGATIVE (NEGATIVE); COLOR,URINE PALE YELLOW; GLUCOSE, URINE (UA) NEGATIVE (NEGATIVE); HEMOGLOBIN 9.7 G/DL (14.2-18.0); KETONES,URINE 4+ (NEGATIVE); LEUKOCYTE ESTERASE ,URINE NEGATIVE (NEGATIVE); MEAN CORPUSCULAR VOLUME 78 FL (80-99); NITRITE,URINE NEGATIVE (NEGATIVE); PH,URINE 5 (4.5-8.0); PLATELET COUNT 361 K/UL (150-450); PROTEIN,URINE 3+ (NEGATIVE); RED BLOOD COUNT 3.47 M/UL (4.70-6.10); RED CELL DISTRIBUTION WIDTH 12.3 % (11.6-14.8); UROBILINOGEN,URINE NORMAL MG/DL (0.0-1.0); WHITE BLOOD COUNT 3.1 K/UL (4.8-10.8)
[2019-09-06 03:55] LABS: ANION GAP 10 mmol/L (5-15); BLOOD UREA NITROGEN 18 mg/dL (7-18); CALCIUM 8.2 MG/DL (8.5-10.1); CARBON DIOXIDE 26 MMOL/L (21-32); CHLORIDE 94 MMOL/L (98-107); CREATININE 1.3 MG/DL (0.55-1.30); POTASSIUM 3.9 MMOL/L (3.5-5.1); SODIUM 130 MMOL/L (136-145)
[2019-09-06 03:56] LABS: INR 1.1 (0.9-1.1)
[2019-09-06] MEDS ORDERED: Hydromorphone 0.5mg/0.5ml inj IVP ONE (04:00)
[2019-09-06 04:12] LABS: ALANINE AMINOTRANSFERASE 16 U/L (12-78); ALBUMIN 2.8 G/DL (3.4-5.0); ALBUMIN/GLOBULIN RATIO 0.6 (1.0-2.7); ALKALINE PHOSPHATASE 243 U/L (46-116); ASPARTATE AMINO TRANSFERASE 27 U/L (15-37); BILIRUBIN,TOTAL 0.5 MG/DL (0.2-1.0); CKMB < 0.5 NG/ML (0.0-3.6); CREATINE KINASE 25 U/L (26-308); PHOSPHORUS 3.3 MG/DL (2.5-4.9)
[2019-09-06 04:40] VITALS: BP 149/96
--- NOTE | 2019-09-06 04:42 | NUR ---
ED Nurse Note: Pt is c/o back pain. ERMD notified and ordered Dilaudid.
--- NOTE | 2019-09-06 04:52 | NUR ---
Nurse spoke with director of casework who gave Anna number(TFR coordinator) [phone] to be called to arrange transfer with tracking # [id number]. Castro contacted, necessary information given. Castro will call us with transfer information and destination.
--- NOTE | 2019-09-06 05:41 | Diagnostic Imaging Report ---
EXAM: XR Chest, 1 View CLINICAL HISTORY: WEAK TECHNIQUE: Frontal view of the chest. COMPARISON: April 19, 2019 chest x-ray FINDINGS: Lungs: Unremarkable. No consolidation. Pleural space: Unremarkable. No pneumothorax. Heart: Unremarkable. No cardiomegaly. Mediastinum: Unremarkable. Bones/joints: Unremarkable. IMPRESSION: No acute cardiopulmonary process..
--- NOTE | 2019-09-06 06:01 | NUR ---
ED Nurse Note: Report given to Zoraida ZEPEDA from [facility].
[2019-09-06 06:02] VITALS: BP 125/86
[2019-09-06 06:33] VITALS: BP 128/83
--- NOTE | 2019-09-06 06:33 | NUR ---
ED Nurse Note: Pt cleared by BILL to be transferred to [facility]. Report given to Zoraida ZEPEDA. Pt was picked up by 2 EMT via [facility]ia. Pt alert and oriented, verbally responsive. 100% RA. No SOB. Not in any distress. Afebrile. Sinus rhythm. IV line on right forearm 22g patent and intact. No skin issues. No isolation. All belongings was sent with the patient.
== END 2019-09-06 06:33 | disposition short-term general hospital (02) ==
LOC: EDBD 02:27 → EMR 04:15
DX: E86.0 Dehydration (principal); R62.7 Adult failure to thrive; E27.1 Primary adrenocortical insufficiency; J44.9 Chronic obstructive pulmonary disease, unspecified; C80.1 Malignant (primary) neoplasm, unspecified; Z88.8 Allergy status to other drugs, medicaments and biological substances
CPT/HCPCS: 36415; 71045; 80053; 81003; 82550; 82553; 83605; 83690; 83735; 83880; 84100; 84484; 85007; 85025; 85610; 85730; 87040; 93005; 96361; 96374; 96375; J1170; J2405; J7030; Z7502; 99284